=== PATIENT | male | born 1985 | race Caucasian/White ===

== ENCOUNTER 2023-10-07 18:15 | Emergency (ER) | payer SELFPAY ==
[2023-10-07] VITALS (25 sets, daily range): BP systolic 157–185; BP diastolic 92–104; PULSE 104–129; TEMP 36.8–37.9; O2SAT 93–98; BMI 40.2
--- NOTE | 2023-10-07 18:41 | XR_ITS ---
The [address] [address] Patient Name: GISELE HODGES MRN: [id number] date: 1985 Sex: M Assigned Patient Location: ER Current Patient Location: ER Accession/Order Number: [id number] Exam Date: 10/07/2023 18:48 Report Date: 10/07/2023 19:58 At the request of: SRI RM Procedure: XR chest 2V EXAM: XR chest 2V HISTORY: cough, chest pain COMPARISON: CTA chest 02/28/2022. TECHNIQUE: PA and lateral views. FINDINGS: Cardiomediastinal silhouette and pulmonary vascularity are within normal limits. The lungs and the costophrenic angles are clear. Overlying monitoring leads. XR/XR chest 2V IMPRESSION: No acute cardiopulmonary disease. Electronically authenticated by: GERA NORTH Date: 10/07/2023 19:58
--- NOTE | 2023-10-07 18:42 | ECG_ITS ---
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
--- NOTE | 2023-10-07 19:03 | ED_ITS ---
HPI - SOB/Dyspnea General Chief Complaint: Shortness of Breath/Dyspnea Stated Complaint: sob Time Seen by Provider: 10/07/23 18:25 Source: patient Mode of arrival: walk-in Limitations: no limitations History of Present Illness HPI Narrative: Patient with 2 weeks of nasal congestion/sinus symptoms and a cough with all different colors of phlegm . Three nights ago he developed right sided chest pain that woke him from sleeping around 3am - since then he has continued to experience intermittent right sided chest pain, sometimes severe. His significant other finally convinced him to come to the ED for evaluation and treatment. He has not been tested for anything over the last 2 weeks. He does not see his PCP for yearly checkups. He takes no prescribed meds. No prior history of DVT or PE. Related Data Allergies Allergy/AdvReac Type Severity Reaction Status Date / Time Penicillins Allergy Intermediate Verified 10/07/23 18:21 Exam Narrative Exam Narrative: Nurses notes and vital signs reviewed and patient is not hypoxic. afebrile General: Well-appearing and in no apparent distress. Skin: Warm, dry, no pallor noted. No rash. Head: Normocephalic, atraumatic. Neck: Supple, non-tender. Cervical lymphadenopathy. No meningismus. Eye: Pupils are equal, round and EOMI. No scleral icterus. Ears, Nose, Mouth, and Throat: TM are clear, no posterior oropharynx erythema, uvula is mid-line. Mild nasal mucosal hypertrophy Oral mucosa is moist Cardiovascular: Tachycardia. Respiratory: Tachypnea. No accessory muscle use or respiratory distress. Lungs With scattered rhonchi Chest Wall: Diffuse right chest wall tenderness, without crepitus or subcutaneous emphysema Musculoskeletal: normal ROM, no calf or popliteal tenderness, no lower extremity edema/swelling GI: Abdomen is soft, non-distended. Normal bowel sounds. No tenderness to palpation. No rebound, guarding, or rigidity noted. Neurological: A&O x4. No cranial nerve dysfunction observed. No truncal ataxia. Moves all extremities. Sensation intact. Psychiatric: Cooperative and interactive. Normal mood and affect. Constitutional Vital Signs, click to edit/add: Last Vital Signs Temp 100.2 F 10/07/23 18:57 Pulse 119 H 10/07/23 19:00 Resp 24 H 10/07/23 18:18 BP 157/92 H 10/07/23 18:57 Pulse Ox 95 04/07/24 19:00 O2 Del Method Room Air 10/07/23 18:25 Course Vital Signs Vital signs: Vital Signs Temperature 98.2 F 10/07/23 18:18 Pulse Rate 119 H 10/07/23 18:18 Respiratory Rate 24 H 10/07/23 18:18 Blood Pressure 185/104 H 10/07/23 18:18 Pulse Oximetry 98 10/07/23 18:18 Oxygen Delivery Method Room Air 10/07/23 18:18 Temperature 100.2 F 10/07/23 18:57 Pulse Rate 119 H 10/07/23 19:00 Respiratory Rate 24 H 10/07/23 18:18 Blood Pressure 157/92 H 10/07/23 18:57 Pulse Oximetry 95 10/07/23 19:00 Oxygen Delivery Method Room Air 10/07/23 18:25 MDM - SOB/Dyspnea MDM Narrative Medical decision making narrative: Patient was placed on teletypesetter monitor and EKG obtained. Blood drawn and sent for evaluation. Chest x-ray obtained. EKG was sinus tachycardia. No ST elevation or ischemic changes noted. Chest x-ray and D-dimer pending. Patient signed out to Dr. Rodas at shift change Discharge Plan Discharge Chief Complaint: Shortness of Breath/Dyspnea Patient Disposition: Still a Patient Print Language: Cook Islander Referrals: Physician,Non-Staff, MD [Primary Care Provider] - 1 week
[2023-10-07 19:13] LABS: Influenza Virus A Antigen Negative; Influenza Virus B Antigen Negative; Internal Control Within Normal Limits; SARS-CoV-2 Ag NEGATIVE (NEGATIVE)
[2023-10-07] MEDS: ACETAMINOPHEN 500 MG TABLET 1000 MG PO (19:42)
--- NOTE | 2023-10-07 19:42 | CT_ITS ---
[address] [address] Patient Name: GISELE HODGES MRN: [id number] date: 1985 Sex: M Assigned Patient Location: ER Current Patient Location: Accession/Order Number: [id number] Exam Date: 10/07/2023 19:55 Report Date: 10/07/2023 21:00 At the request of: PARTH VIERA Procedure: CT angio chest EXAMINATION:CT angio chest INDICATION:chest pain COMPARISON:02/28/2022 TECHNIQUE:Thin section transaxial slices were acquired through the chest with intravenous contrast per PE protocol. Coronal and sagittal reconstructed images were reviewed. FINDINGS: PULMONARY ARTERIES: There is fair opacification of the pulmonary vasculature. No central pulmonary embolus is identified in the main pulmonary arteries or proximal segmental branches. The distal segmental branches are not optimally opacified for adequate evaluation. LUNGS: There is an irregular soft tissue masslike density in the medial right lower lobe measuring 7.6 x 3.2 x 5.5 cm. This could represent airspace density from pneumonia. A neoplastic process cannot be excluded. The left lung is clear. There is a 4 mm-sized pulmonary nodule in the right middle lobe which is unchanged from the previous exam. PLEURAL CAVITY: No pleural effusion. MEDIASTINUM: Trachea and central airways are patent. HEART: UnRemarkable.There is no evidence of right heart strain. VASCULAR:No aneurysm or dissection of the thoracic aorta. LYMPH NODES:There is lymphadenopathy in the mediastinum and right hilum. The largest lymph node is present in the right hilum measuring 3.1 x 2.0 cm. CHEST WALL/AXILLA: Chest wall and axilla are unremarkable. BONES: Mild endplate degeneration is present in the thoracic spine. VISUALIZED UPPER ABDOMEN: Upper abdominal structures are unremarkable. CT/CT angio chest IMPRESSION: 1. No central pulmonary embolus in the main pulmonary arteries or proximal segmental branches. 2. Irregular soft tissue masslike density in the right lower lobe as discussed above. This is nonspecific and could be secondary to pneumonia in the proper clinical setting. Malignant neoplasm cannot be excluded. Attention to follow-up is recommended with repeat contrast enhanced chest CT in 3 months. 3. Lymphadenopathy in the mediastinum and right hilum which is also nonspecific. This can be followed up in 3 months as well. Electronically authenticated by: RODRIGUE BERNSTEIN Date: 10/07/2023 21:00
[2023-10-07] MEDS: ALBUTEROL SULFATE 2.5 MG/3 ML VIAL NEB IH (20:03)
[2023-10-07] MEDS: LEVOFLOXACIN 500 MG TABLET PO (21:57)
== END 2023-10-07 21:59 | disposition home or self-care (01) ==
PROVIDERS: Emergency Medicine; Emergency Provider Internal Medicine
DX: J18.9 Pneumonia, unspecified organism (principal); Z20.822 Contact with and (suspected) exposure to COVID-19
CPT/HCPCS: 36415; 71046; 71275; 85378; 87804; 87811; 93005; 94640; 99285; Q9967

== ENCOUNTER 2024-03-28 01:34 | Emergency (ER) | payer SELFPAY ==
[2024-03-28 01:36] VITALS: BP 155/103; PULSE 109; TEMP 37.2; O2SAT 97; BMI 34.4
--- NOTE | 2024-03-28 01:47 | ED.EXTPRO1 ---
HPI - Extremity Problem General Chief complaint: Extremity Problem, Nontraumatic Stated complaint: RASH BOTH LEGS Time Seen by Provider: 03/28/24 01:44 Source: patient Mode of arrival: walk-in Limitations: no limitations History of Present Illness HPI Narrative: presents with rash bilat lower ext. States exposed to poison [place]. rash on right leg now has weeping and vesicular lesions. Rash jus starting on left leg. No pain. No fever or dyspnea. No systemic symptoms Related Data Allergies Allergy/AdvReac Type Severity Reaction Status Date / Time Penicillins Allergy Intermediate Anaphylaxis Verified 03/28/24 01:42 Review of Systems ROS Status of ROS 10 or more systems reviewed and unremarkable except as noted in history and below [facility] Surgical History (Updated 03/28/24 @ 01:42 by Akilah Meléndez) History of appendectomy ?Z90.49 - Acquired absence of other specified parts of digestive tract (ICD-10) Social History Little interest or pleasure in doing things: not at all Feeling down, depressed, or hopeless: not at all Exam Constitutional Vital Signs, click to edit/add: Last Vital Signs Temp 98.9 F 03/28/24 01:36 Pulse 109 H 03/28/24 01:36 Resp 20 03/28/24 01:36 BP 155/103 H 03/28/24 01:36 Pulse Ox 97 03/28/24 01:36 O2 Del Method Room Air 03/28/24 01:36 Common normals: no apparent distress, average body habitus, oriented x3, no limitations, healthy appearing, alert and well nourished [facility] Common normals: normocephalic and head/scalp atraumatic Respiratory Common normals: normal respiratory effort, no retractions, no use of accessory muscles and clear to auscultation bilaterally Cardio Common normals: regular rate, regular rhythm, S1 normal heart sound and S2 normal heart sound Extremity Other: rash bilat lower ext. R>>L Neuro Common normals: oriented x3, CN's II-XII intact bilaterally, moves all extremities and no focal motor deficits Sensorium/orientation: awake Psych Appearance: grossly normal Course Vital Signs Vital signs: Vital Signs Temperature 98.9 F 03/28/24 01:36 Pulse Rate 109 H 03/28/24 01:36 Respiratory Rate 03/28/24 01:36 Blood Pressure 155/103 H 03/28/24 01:36 Pulse Oximetry 97 03/28/24 01:36 Oxygen Delivery Method Room Air 03/28/24 01:36 Temperature 98.9 F 03/28/24 01:36 Pulse Rate 109 H 03/28/24 01:36 Respiratory Rate 20 03/28/24 01:36 Blood Pressure 155/103 H 03/28/24 01:36 Pulse Oximetry 97 03/28/24 01:36 Oxygen Delivery Method Room Air 03/28/24 01:36 MDM - Extremity (Nontraumatic) MDM Narrative Medical decision making narrative: patient presents with rash of contact dermatitics bilat lower extremities given dose of solumedrol and discharged home with prednisone Discharge Plan Discharge Chief Complaint: Extremity Problem, Nontraumatic Clinical Impression: Contact dermatitis Patient Disposition: Home, Self-Care Print Language: Burundian Instructions: Contact Dermatitis (ED) Additional Instructions: follow up with your doctor next week for recheck Referrals: Physician,Non-Staff, MD [Primary Care Provider] - 1 week Discharge Date/Time: 03/28/24 02:00
[2024-03-28] MEDS: METHYLPREDNISOLONE SOD SUCC PF 125 MG/2 ML VIAL IM (01:56)
== END 2024-03-28 02:00 | disposition home or self-care (01) ==
PROVIDERS: Emergency Provider Internal Medicine
DX: L25.9 Unspecified contact dermatitis, unspecified cause (principal)
CPT/HCPCS: 96372; 99284; J2919

== ENCOUNTER 2025-04-10 17:40 | Emergency (ER) | payer OTHER, SELFPAY ==
--- OUTSIDE RECORDS SUMMARY | 2025-04-10 17:55 | XMS_ITS | CCD ---
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 [address] [place] [address] VIR Platelet mean volume (Bld) [Entitic vol] 8.0 fL Normal 7-12 [facility] Comment on above: Performed By: #### C BCA #### [facility] ([facility]) [address] [place] [address] VIR Platelets (Bld) [#/Vol] 317 10*3/uL Normal 150-450 [facility] Comment on above: Performed By: #### C BCA #### [facility] ([facility]) [address] [place] [address] VIR RBC COUNT 4.57 X10E12/L Normal 4.1-5.7 [facility] Comment on above: Performed By: #### C BCA #### [facility] ([facility]) [address] [place] [address] VIR WBC (Bld) [#/Vol] 10.5 10*3/uL Normal 4-11 [facility] Comment on above: Performed By: #### C BCA #### [facility] ([facility]) [address] [place] [address] VIR COMPREHENSIVE METABOLIC PANE Victor Manuel 12-31-2024 Albumin [Mass/Vol] 4.6 g/dL Normal 3.2-5.3 [facility] Comment on above: Performed By: #### C MP #### [facility] ([facility]) [address] [place] [address] VIR ALP [Catalytic activity/Vol] 97 U/L Normal 39-130 [facility] Comment on above: Performed By: #### C MP #### [facility] ([facility]) [address] [place] [address] VIR ALT [Catalytic activity/Vol] 24 U/L Normal <=40 [facility] Comment on above: Performed By: #### C MP #### [facility] ([facility]) [address] [place] [address] VIR Anion gap [Moles/Vol] 10 mmol/L Normal 5-15 [facility] Comment on above: Performed By: #### C MP #### [facility] ([facility]) [address] [place] [address] VIR AST [Catalytic activity/Vol] 21 U/L Normal <=41 [facility] Comment on above: Performed By: #### C MP #### [facility] ([facility]) [address] [place] [address] VIR Bilirubin [Mass/Vol] 0.5 mg/dL Normal 0.3-1.2 [facility] Comment on above: Performed By: #### C MP #### [facility] ([facility]) [address] [place] [address] VIR Calcium [Mass/Vol] 9.3 mg/dL Normal 8.5-10.5 [facility] Comment on above: Performed By: #### C MP #### [facility] ([facility]) [address] [place] [address] VIR Chloride [Moles/Vol] 96 mmol/L Low 98-109 [facility] Comment on above: Performed By: #### C MP #### [facility] ([facility]) [address] [place] [address] VIR CO2 [Moles/Vol] 28 mmol/L Normal 22-32 [facility] Comment on above: Performed By: #### C MP #### [facility] ([facility]) [address] [place] [address] VIR Creatinine [Mass/Vol] 0.82 mg/dL Normal 0.60-1.30 [facility] Comment on above: Result Comment: METH OD TRACEABLE TO IDMS STANDARD Performed By: #### C MP #### [facility] ([facility]) [address] [place] [address] VIR EGFR (CKD-EPI) NON-RACE DEPENDENT >^90 Normal >=60 [facility] Comment on above: Result Comment: Repo rted eGFR is based on the CKD-EPI 2020 equation that does not use a race coefficient. Performed By: #### C MP #### [facility] ([facility]) [address] [place] [address] VIR Glucose [Mass/Vol] 149 mg/dL High 65-99 [facility] Comment on above: Performed By: #### C MP #### [facility] ([facility]) [address] [facility] [address] [place] [address] VIR Potassium [Moles/Vol] 3.7 mmol/L Normal 3.5-5.0 [facility] Comment on above: Performed By: #### C MP #### [facility] ([facility]) [address] [place] [address] VIR Protein [Mass/Vol] 7.5 g/dL Normal 6.0-8.0 [facility] Comment on above: Performed By: #### C MP #### [facility] ([facility]) [address] [place] [address] VIR Sodium [Moles/Vol] 134 mmol/L Normal 134-146 [facility] Comment on above: Performed By: #### C MP #### [facility] ([facility]) [address] [place] [address] VIR Urea nitrogen [Mass/Vol] 17 mg/dL Normal 5-23 [facility] Comment on above: Performed By: #### C MP #### [facility] ([facility]) [address] [place] [address] VIR HIV 1 AND 2 AB/AG SCREEN (P2 4 AG)on 12-31-2024 HIV 1 AND 2 AB/AG SCREEN Non-Reactive Normal Non-Reactive [facility] Comment on above: Order Comment: This information has been disclosed to you from confidential records protected from disclosure by state law. You shall make no further disclosure of this information without the specific, written and informed release of the individual to whom it pertains, or as otherwise permitted by state law. A general authorization for the release of medical or other information is not sufficient for the purpose of the release of HIV test results or diagnoses. Performed By: #### H IV4 #### [facility] ([facility]) [address] [place] [address] VIR LIPID PROFILEon 12-31-2024 Cholesterol [Mass/Vol] 147 mg/dL Low 150-200 [facility] Comment on above: Performed By: #### L IPR #### [facility] ([facility]) [address] [place] [address] VIR Cholesterol in HDL [Mass/Vol] 31 mg/dL Low >39 [facility] Comment on above: Result Comment: HDL <40 mg/dL - High Risk HDL > or = 40mg/dL- Desirable HDL >60 mg/dL - Negative Risk Performed By: #### L IPR #### [facility] ([facility]) [address] [place] [address] VIR Cholesterol in LDL [Mass/Vol] 98 mg/dL Normal <130 [facility] Comment on above: Result Comment: LDL <100 mg/dL - Desirable LDL >160 mg/dL - High Risk Performed By: #### L IPR #### [facility] ([facility]) [address] [place] [address] VIR CHOLESTEROL:HDL 4.7 Normal 1.0-5.0 [facility] Comment on above: Performed By: #### L IPR #### [facility] ([facility]) [address] [place] [address] VIR Triglyceride [Mass/Vol] 89 mg/dL Normal 27-150 [facility] Comment on above: Performed By: #### L IPR #### [facility] ([facility]) [address] [place] [address] VIR VERY LOW LIPOPROTEIN 18 mg/dL Normal 0-30 [facility] Comment on above: Performed By: #### L IPR #### [facility] ([facility]) [address] [place] [address] VIR CTA CHEST WO W CONon 022 CTA CHEST WO W CON EXAMINATION: CTA CHEST WO W CON, 02/28/2022 9:07 PM EDT HISTORY: SHORTNESS OF BREATH COMPARISON: Chest x-ray 02/28/2022. TECHNIQUE: CT angiography of the chest was performed with IV contrast. MIP (maximum intensity projection) images or 3D post processing was performed. CT dose reduction technique was used, including Automated Exposure Control. FINDINGS: VASCULATURE/PULMONAR Y ARTERIES: There is satisfactory opacification of the pulmonary arterial system. There is no evidence of pulmonary embolism. The main pulmonary artery is normal in diameter. The aorta and great vessels appear normal. HEART/PERICARDIUM: Normal. MEDIASTINAL/HILAR LYMPH NODES: There is no adenopathy. There is mild haziness of the anterior mediastinal fat which may be due to residual thymic tissue. ESOPHAGUS: Normal as visualized. PLEURAL CAVITY: No pleural effusion or pneumothorax. LUNGS/AIRWAYS: Mild bilateral bronchial wall thickening consistent with bronchitis. There is a 3 mm nodular density in the right middle lobe on image 43. There is a 2 mm nodular density in the right upper lobe on image 32. There is a 4 mm nodule in the posterior segment of the right lower lobe on image 29. There is a 4 mm left upper lobe nodule on image 29. There is a 3 mm nodule along the left major fissure on image 34. Lungs are otherwise clear. CHEST WALL/AXILLA/LOWER NECK: Normal. VISUALIZED UPPER ABDOMEN: Normal. BONES: There are mild multilevel degenerative changes of the thoracic spine. No acute osseous abnormality. IMPRESSION: 1. No evidence of pulmonary embolism. 2. Bronchial wall thickening suggestive of bronchitis. 3. Multiple small pulmonary nodules measuring up to 4 mm. Follow-up chest CT may be considered in 12 months if clinically indicated. Fleischner Society guidelines for follow-up and management of multiple solid pulmonary nodules incidentally discovered in patients 35 years old or older: Nodule size <6 mm Low-risk patient: No routine follow-up. High-risk patient: Optional CT at 12 months. Nodule size = 6-8 mm Low-risk patient: CT at 3-6 months, then consider CT at 18-24 months. High-risk patient: CT at 3-6 months, then CT at 18-24 months. Nodule size > 8 mm Low-risk patient: CT at 3-6 months, then consider CT at 18-24 months. High-risk patient: CT at 3-6 months ,then CT at 18-24 months. Use most suspicious nodule as guide to management. Follow-up intervals may vary according to size and risk. Low risk patients include individuals with minimal or absent history of smoking and other known risk factors. High risk patients include individuals with a history of smoking or other known risk factors. Dimensions are an average of the long and short axes, rounded to the nearest millimeter. Radiology 2017. Feb 23:282320. DOI: 10.1148/[id number]. Electronically authenticated by: GLORIA MURO Date: 2022-02-28 22:50 Normal [facility] CBC AUTO DIFFon 02-28-2022 BASO # 0.1 103/ul Normal 0.0-0.1 [facility] Comment on above: Performed By: #### C BC #### [facility] [address] [place] [address] Dr. Karsten Nice Basophils/100 WBC (Bld) 0.5 % Normal 0.2-2.0 [facility] Comment on above: Performed By: #### C BC #### [facility] [address] [place] [address] Dr. Karsten Nice EO # 0.5 103/ul Normal 0.0-0.7 [facility] Comment on above: Performed By: #### C BC #### [facility] [address] [place] [address] Dr. Karsten Nice Eosinophils/100 WBC (Bld) 3.0 % Normal 0.9-7.0 [facility] Comment on above: Performed By: #### C BC #### [facility] [address] [place] [address] Dr. Karsten Nice Erythrocyte distribution width (RBC) [Ratio] 12.8 % Normal 11.0-15.0 [facility] Comment on above: Performed By: #### C BC #### [facility] [address] [address] [address] Karsten Nice Hematocrit (Bld) [Volume fraction] 44.3 % Normal 42.0-54.0 [facility] Comment on above: Performed By: #### C BC #### [facility] [address] [address] [address] Karsten Nice Hemoglobin (Bld) [Mass/Vol] 15.1 g/dL Normal 14.0-18.0 [facility] Comment on above: Performed By: #### C BC #### [facility] [address] [place] [address] Dr. Karsten Nice IG # 0.07 10e3/ul Critically high 0.00-0.03 [facility] Comment on above: Performed By: #### C BC #### [facility] [address] [place] [address] Dr. Karsten Nice IG % 0.5 % Normal 0.0-0.5 [facility] Comment on above: Performed By: #### C BC #### [facility] [address] [place] [address] Dr. Karsten Nice LYMPH # 4.4 103/ul Critically high 1.2-3.8 [facility] Comment on above: Performed By: #### C BC #### [facility] [address] [place] [address] Dr. Karsten Nice Lymphocytes/100 WBC (Bld) 29.7 % Normal 20.5-60.0 [facility] Comment on above: Performed By: #### C BC #### [facility] [address] [place] [address] Dr. Karsten Nice MANUAL DIFF REQ NO Normal [facility] Comment on above: Performed By: #### C BC #### [facility] [address] [place] [address] Dr. Karsten Nice MCH (RBC) [Entitic mass] 29.7 pg Normal 25.9-34.0 [facility] Comment on above: Performed By: #### C BC #### [facility] [address] [address] [address] Karsten Nice MCHC (RBC) [Mass/Vol] 34.1 g/dL Normal 29.9-35.2 [facility] Comment on above: Performed By: #### C BC #### [facility] [address] [address] [address] Karsten Nice MCV (RBC) [Entitic vol] 87.2 fL Normal 80.0-94.0 [facility] Comment on above: Performed By: #### C BC #### [facility] [address] [address] [address] Karsten Nice MONO # 0.9 103/ul Critically high 0.3-0.8 [facility] Comment on above: Performed By: #### C BC #### [facility] [address] [place] [address] Dr. Karsten Nice Monocytes/100 WBC (Bld) 6.0 % Normal 1.7-12.0 [facility] Comment on above: Performed By: #### C BC #### [facility] [address] [address] [address] Karsten Nice NEUT # 8.9 103/ul Critically high 1.4-6.5 [facility] Comment on above: Performed By: #### C BC #### [facility] [address] [place] [address] Dr. Karsten Nice Neutrophils/100 WBC (Bld) 60.3 % Normal 43.0-75.0 [facility] Comment on above: Performed By: #### C BC #### [facility] [address] [address] [address] Karsten Nice Platelet mean volume (Bld) [Entitic vol] 9.2 fL Critically low 9.5-13.5 [facility] Comment on above: Performed By: #### C BC #### [facility] [address] [place] [address] Dr. Karsten Nice PLT 372 103/ul Normal 150-450 [facility] Comment on above: Performed By: #### C BC #### [facility] [address] [address] [address] Karsten Nice RBC 5.08 106/ul Normal 4.70-6.10 [facility] Comment on above: Performed By: #### C BC #### [facility] [address] [address] [address] Karsten Nice WBC 14.8 103/ul Critically high 4.0-11.0 [facility] Comment on above: Performed By: #### C BC #### [facility] [address] [address] [address] Karsten Nice Covid-19 PCR (CVDTBH)on 02-01 SARS-CoV-2 (COVID-19) RNA JOEL+probe Ql (Unsp spec) Not detected Normal NOT DETECTED [facility] Comment on above: Result Comment: When diagnostic testing is negative, the possibility of a false negative should be considered in the context of a patient's recent exposures and the presence of clinical signs and symptoms consistent with SARS-CoV-2. This test is not yet approved or cleared by the [place] FDA. When there are no FDA-approved or cleared tests available, and other criteria are met, FDA can make tests available under an emergency access mechanism called an Emergency Use Authorization (EUA). The EUA for this test is supported by the Produce Manager of Health and Human Service's declaration that circumstances exist to justify the emergency use of in vitro diagnostics for the detection and/or diagnosis of the virus that causes COVID-19. This EUA will remain in effect for the duration of the COVID-19 declaration justifying emergency of IVDs, unless it is terminated or revoked by the FDA (after which the test may no longer be used). Performed By: #### C VDTBH #### [facility] [address] [place] [address] Dr. Karsten Nice D-DIMERon 02-28-2022 D-DIMER 0.63 mg/L FEU Critically high <=0.59 [facility] Comment on above: Performed By: #### D DIM #### [facility] [address] [place] [address] Dr. Karsten Nice D-DIMER COMMENTS SEE BELOW Normal [facility] Comment on above: Result Comment: Incr eases in D-Dimer concentration observed with thromboembolic events can be variable due to localization, size, and age of the thrombus. Therefore, a thromboembolic event cannot be diagnosed with certainty on the basis of the reference range. D-Dimers may also be elevated for a variety of disorders including: advanced age, , coronary disease, cancer, liver disease, infection, inflammation, hematoma, DIC, trauma, post-surgery, diabetes, thrombolytic or anticoagulant therapy, stress, and generalized hospitalization. Performed By: #### D DIM #### [facility] [address] [place] [address] Dr. Karsten Nice LIPASEon 02-28-2022 Lipase [Catalytic activity/Vol] 83.0 U/L Normal 73.0-393.0 [facility] Comment on above: Performed By: #### L IPA, HSTROPN, CMP #### [facility] [address] [place] [address] Dr. Karsten Nice PROF 14(COMP METB)on 022 Albumin [Mass/Vol] 4.0 g/dL Normal 3.4-5.0 [facility] Comment on above: Performed By: #### L IPA, HSTROPN, CMP #### [facility] [address] [place] [address] Dr. Karsten Nice Albumin/Globulin [Mass ratio] 1.1 {ratio} Normal [facility] Comment on above: Performed By: #### L IPA, HSTROPN, CMP #### [facility] [address] [place] [address] Dr. Karsten Nice ALP [Catalytic activity/Vol] 112 U/L Normal 46-116 [facility] Comment on above: Performed By: #### L IPA, HSTROPN, CMP #### [facility] [address] [place] [address] Dr. Karsten Nice ALT [Catalytic activity/Vol] 45 U/L Normal 16-63 [facility] Comment on above: Performed By: #### L IPA, HSTROPN, CMP #### [facility] [address] [place] [address] Dr. Karsten Nice Anion gap [Moles/Vol] 14.4 mmol/L Normal [facility] Comment on above: Performed By: #### L IPA, HSTROPN, CMP #### [facility] [address] [address] [address] Karsten Nice AST [Catalytic activity/Vol] 18 U/L Normal 15-37 [facility] Comment on above: Performed By: #### L IPA, HSTROPN, CMP #### [facility] [address] [address] [address] Karsten Nice Bilirubin [Mass/Vol] 0.2 mg/dL Normal 0.2-1.0 [facility] Comment on above: Performed By: #### L IPA, HSTROPN, CMP #### [facility] [address] [place] [address] Dr. Karsten Nice Calcium [Mass/Vol] 8.7 mg/dL Normal 8.5-10.1 [facility] Comment on above: Performed By: #### L IPA, HSTROPN, CMP #### [facility] [address] [address] [address] Karsten Nice Chloride [Moles/Vol] 101 mmol/L Normal 98-107 [facility] Comment on above: Performed By: #### L IPA, HSTROPN, CMP #### [facility] [address] [place] [address] Dr. Karsten Nice CO2 [Moles/Vol] 26.1 mmol/L Normal 21.0-32.0 [facility] Comment on above: Performed By: #### L IPA, HSTROPN, CMP #### [facility] [address] [place] [address] Dr. Karsten Nice Creatinine [Mass/Vol] 0.94 mg/dL Normal 0.70-1.30 [facility] Comment on above: Performed By: #### L IPA, HSTROPN, CMP #### [facility] [address] [place] [address] Dr. Karsten Nice EGFR-AF NAURUAN >60 Normal >=60 [facility] Comment on above: Performed By: #### L IPA, HSTROPN, CMP #### [facility] [address] [address] [address] Karsten Nice EGFR-NON AF NAURUAN >60 Normal >=60 [facility] Comment on above: Performed By: #### L IPA, HSTROPN, CMP #### [facility] [address] [address] [address] Karsten Nice Globulin (S) [Mass/Vol] 3.6 g/dL Normal [facility] Comment on above: Performed By: #### L IPA, HSTROPN, CMP #### [facility] [address] [address] [address] Karsten Nice Glucose [Mass/Vol] 147 mg/dL Critically high 74-106 [facility] Comment on above: Performed By: #### L IPA, HSTROPN, CMP #### [facility] [address] [address] [address] Karsten Nice Potassium [Moles/Vol] 3.5 mmol/L Normal 3.5-5.1 [facility] Comment on above: Performed By: #### L IPA, HSTROPN, CMP #### [facility] [address] [place] [address] Dr. Karsten Nice Protein [Mass/Vol] 7.6 g/dL Normal 6.4-8.2 [facility] Comment on above: Performed By: #### L IPA, HSTROPN, CMP #### [facility] [address] [address] [address] Karsten Nice Sodium [Moles/Vol] 138 mmol/L Normal 136-145 [facility] Comment on above: Performed By: #### L IPA, HSTROPN, CMP #### [facility] [address] [place] [address] Dr. Karsten Nice Urea nitrogen [Mass/Vol] 19.0 mg/dL Critically high 7.0-18.0 [facility] Comment on above: Performed By: #### L IPA, HSTROPN, CMP #### [facility] [address] [address] [address] Karsten Nice Urea nitrogen/Creatinine [Mass ratio] 20.2 mg/mg Normal [facility] Comment on above: Performed By: #### L IPA, HSTROPN, CMP #### [facility] [address] [address] [address] Karsten Nice TROPONIN, HIGH SENSITIVITYon 02-28-2022 HSTROP 5.3 pg/mL Normal 4.0-76.1 [facility] Comment on above: Result Comment: CUT- OFF POINTS HAVE BEEN ESTABLISHED BASED ON THE FOURTH UNIVERSAL DEFINITIONS OF MYOCARDIAL INFARCTION. THE UPPER REFERENCE LIMIT (URL) OF TROPONIN, DEFINED THE 99TH PERCENTILE OF cTnI DISTRIBUTION IN A REFERENCE POPULATION, HAS BEEN CONFIRMED THE DECISION THRESHOLD FOR MS DIAGNOSIS. Performed By: #### L IPA, HSTROPN, CMP #### [facility] [address] [place] [address] Dr. Karsten Nice Basic Metabolic Panelon 10-30 Anion gap [Moles/Vol] 11 mmol/L 9 - 17 mmol/L [place] Bun/Cre Ratio NOT REPORTED [place] Calcium [Mass/Vol] 8.8 mg/dL 8.6 - 10. 4 mg/dL [place] Chloride [Moles/Vol] 102 mmol/L 98 - 10 7 mmol/L [place] CO2 [Moles/Vol] 25 mmol/L 20 - 31 mmol/L [place] Creatinine [Mass/Vol] 0.64 mg/dL Low 0.7 - 1.2 mg/dL [place] GFR >60 >60 mL/min [place] GFR Non- >60 >60 mL/min [place] GFR/1.73 sq M predicted among non-blacks MDRD (S/P/Bld) [Vol rate/Area] [place] Comment on above: Average GFR for 30-3 9 years old: 107 mL/min/1.73sq m Chronic Kidney Disease: <60 mL/min/1.73sq m Kidney failure: <15 mL/min/1.73sq m eGFR calculated using average adult body mass. Additional eGFR calculator available at: http://www.BookFresh/multiple_crcl_2012.htm GFR/1.73 sq M predicted among non-blacks MDRD (S/P/Bld) [Vol rate/Area] NOT REPORTED [place] Glucose [Mass/Vol] 130 mg/dL High 70 - 99 mg/dL [place], [place] Interpretation and review of laboratory results Abnormal [place] Potassium [Moles/Vol] 3.3 mmol/L Low 3.7 - 5.3 mmol/L [place] Sodium [Moles/Vol] 138 mmol/L 135 - 144 mmol/L [place] Urea nitrogen [Mass/Vol] 7 mg/dL 6 - 20 mg/dL [place] Basic Metabolic Profon 11-12 (cont.) Normal [facility] Comment on above: Result Comment: Aver age GFR for 30-39 years old: 107 mL/min/1.73sq m Chronic Kidney Disease: <60 mL/min/1.73sq m Kidney failure: <15 mL/min/1.73sq m eGFR calculated using average adult body mass. Additional eGFR calculator available at: http://www.BookFresh/multiple_crcl_2012.htm Performed By: #### E RTPF, UA, UMICAO, THIERNO #### [facility] [employer] [address] [place] [phone] Electronic Induction Hardener: Robert Motta MD Anion gap [Moles/Vol] 11 mmol/L Normal 9-17 [facility] Comment on above: Performed By: #### E RTPF, UA, UMICAO, THIERNO #### [facility] [employer] [address] [place] [phone] Electronic Induction Hardener: Robert Motta MD Calcium [Mass/Vol] 8.8 mg/dL Normal 8.6-10.4 [facility] Comment on above: Performed By: #### E RTPF, UA, UMICAO, THIERNO #### [facility] [employer] [address] [place] [phone] Electronic Induction Hardener: Robert Motta MD Chloride [Moles/Vol] 102 mmol/L Normal 98-107 [facility] Comment on above: Performed By: #### E RTPF, UA, UMICAO, THIERNO #### [address] [address] Electronic Induction Hardener: Robert Motta MD CO2 [Moles/Vol] 25 mmol/L Normal 20-31 [facility] Comment on above: Performed By: #### E RTPF, UA, UMICAO, THIERNO #### [address] [address] Electronic Induction Hardener: Robert Motta MD Creatinine [Mass/Vol] 0.64 mg/dL Low 0.70-1.20 [facility] Comment on above: Performed By: #### E RTPF, UA, UMICAO, THIERNO #### [address] [address] Electronic Induction Hardener: Robert Motta MD GFR, Amer >60 Normal >60 [facility] Comment on above: Performed By: #### E RTPF, UA, UMICAO, THIERNO #### [address] [address] Electronic Induction Hardener: Robert Motta MD GFR,non Amer >60 Normal >60 [facility] Comment on above: Performed By: #### E RTPF, UA, UMICAO, THIERNO #### [address] [address] Electronic Induction Hardener: Robert Motta MD Glucose [Mass/Vol] 130 mg/dL High 70-99 [facility] Comment on above: Performed By: #### E RTPF, UA, UMICAO, THIERNO #### [address] [address] Electronic Induction Hardener: Robert Motta MD Potassium [Moles/Vol] 3.3 mmol/L Low 3.7-5.3 [facility] Comment on above: Performed By: #### E RTPF, UA, UMICAO, THIERNO #### [facility] [address] [place] [address] Electronic Induction Hardener: Robert Motta MD Sodium [Moles/Vol] 138 mmol/L Normal 135-144 [facility] Comment on above: Performed By: #### E RTPF, UA, UMICAO, THIERNO #### [facility] [address] [place] [phone] Electronic Induction Hardener: Robert Motta MD Urea nitrogen [Mass/Vol] 7 mg/dL Normal 6-20 [facility] Comment on above: Performed By: #### E RTPF, UA, UMICAO, THIERNO #### [facility] [address] [place] [address] Electronic Induction Hardener: Robert Motta MD BUN/CRE Ratio NOT REPORTED Normal -20 [facility] Comment on above: Performed By: #### E RTPF, UA, UMICAO, THIERNO #### [facility] [address] [place] [phone] Electronic Induction Hardener: Robert Motta MD Staging: NOT REPORTED Normal [facility] Comment on above: Performed By: #### E RTPF, UA, UMICAO, THIERNO #### [facility] [address] [place] [phone] Electronic Induction Hardener: Robert Motta MD CBC Auto Differentialon 05- Basophils (Bld) [#/Vol] 0.07 10*3/uL [place] Basophils/100 WBC (Bld) 1 % 0 - 2 % [place], [place] Differential Type NOT REPORTED [place] Eosinophils (Bld) [#/Vol] 0.49 10*3/uL [place] Eosinophils/100 WBC (Bld) 3 % 1 - 4 % [place] Erythrocyte distribution width (RBC) [Ratio] 13.0 % 11.8 - 14.4 % [place] Hematocrit (Bld) [Volume fraction] 39.5 % Low 40.7 - 50.3 % [place] Hemoglobin (Bld) [Mass/Vol] 12.9 g/dL Low 13 - 17 g/dL [place] Immature granulocytes (Bld) [#/Vol] 0.06 10*3/uL [place] Immature granulocytes (Bld) [#/Vol] 0 % 0 [place] Interpretation and review of laboratory results Abnormal [place] Lymphocytes (Bld) [#/Vol] 2.47 10*3/uL [place] Lymphocytes/100 WBC (Bld) 17 % Low 24 - 43 % [place] MCH (RBC) [Entitic mass] 30.4 pg 25.2 - 33.5 pg [place] MCHC (RBC) [Mass/Vol] 32.7 g/dL 28.4 - 34.8 g/dL [place] MCV (RBC) [Entitic vol] 93.2 fL 82.6 - 102.9 fL [place] Monocytes (Bld) [#/Vol] 1.25 10*3/uL [place] Monocytes/100 WBC (Bld) 9 % 3 - 12 % [place] Platelet mean volume (Bld) [Entitic vol] 9.7 fL 8.1 - 13.5 fL [place], [place] Platelets (Bld) [#/Vol] 279 10*3/uL [place] Platelets (Bld) [#/Vol] NOT REPORTED [place] RBC (Bld) [#/Vol] 4.24 10*6/uL 4.21 - 5.7 7 m/uL [place] RBC morphology finding Nom (Bld) NOT REPORTED [place] Segmented neutrophils/100 WBC (Bld) 70 % High 36 - 65 % [place] Segs Absolute 9.87 [place] WBC (Bld) [#/Vol] 14.2 10*3/uL [place] WBC (Bld) [#/Vol] 0.0 10*3/uL 0.0 per 10 0 WBC [place] WBC Morphology NOT REPORTED [place] CBC with Diffon 11-13-2019 Abs. Basophil 0.07 k/uL Normal 0.00-0.20 [facility] Comment on above: Performed By: #### E RTPF UA, UMJDO, THIERNO #### [address] [address] Electronic Induction Hardener: Robert Motta MD Abs.Imm.Granulocyte 0.06 k/uL Normal 0.00-0.30 [facility] Comment on above: Performed By: #### E RTPF, UA, UMICAO, THIERNO #### [facility] [employer] [address] [place] [phone] Electronic Induction Hardener: Robert Motta MD Abs.Neutrophil (Seg) 9.87 k/uL High 1.50-8.10 [facility] Comment on above: Performed By: #### E RTPF, UA, UMICAO, THIERNO #### [facility] [employer] [address] [place] [phone] Electronic Induction Hardener: Robert Motta MD Basophils/100 WBC (Bld) 1 % Normal 0-2 [facility] Comment on above: Performed By: #### E RTPF, UA, UMICAO, THIERNO #### [facility] [employer] [address] [place] [address] Electronic Induction Hardener: Robert Motta MD Eosinophils (Bld) [#/Vol] 0.49 10*3/uL High 0.00-0.44 [facility] Comment on above: Performed By: #### E RTPF, UA, UMICAO, THIERNO #### [address] [address] Electronic Induction Hardener: Robert Motta MD Eosinophils/100 WBC (Bld) 3 % Normal 1-4 [facility] Comment on above: Performed By: #### E RTPF, UA, UMICAO, THIERNO #### [address] [address] Electronic Induction Hardener: Robert Motta MD Erythrocyte distribution width (RBC) [Ratio] 13.0 % Normal 11.8-14.4 [facility] Comment on above: Performed By: #### E RTPF, UA, UMICAO, THIERNO #### [address] [address] Electronic Induction Hardener: Robert Motta MD Hematocrit (Bld) [Volume fraction] 39.5 % Low 40.7-50.3 [facility] Comment on above: Performed By: #### E RTPF, UA, UMICAO, THIERNO #### [address] [address] Electronic Induction Hardener: Robert Motta MD Hemoglobin (Bld) [Mass/Vol] 12.9 g/dL Low 13.0-17.0 [facility] Comment on above: Performed By: #### E RTPF, UA, UMICAO, THIERNO #### [facility] [employer] [address] [place] [phone] Electronic Induction Hardener: Robert Motta MD Immature granulocytes (Bld) [#/Vol] 0 % Normal 0 [facility] Comment on above: Performed By: #### E RTPF, UA, UMICAO, THIERNO #### [facility] [employer] [address] [place] [phone] Electronic Induction Hardener: Robert Motta MD Lymphocytes (Bld) [#/Vol] 2.47 10*3/uL Normal 1.10-3.70 [facility] Comment on above: Performed By: #### E RTPF, UA, UMICAO, THIERNO #### [address] [address] Electronic Induction Hardener: Robert Motta MD Lymphocytes/100 WBC (Bld) 17 % Low 24-43 [facility] Comment on above: Performed By: #### E RTPF, UA, UMICAO, THIERNO #### [address] [address] Electronic Induction Hardener: Robert Motta MD MCH (RBC) [Entitic mass] 30.4 pg Normal 25.2-33.5 [facility] Comment on above: Performed By: #### E RTPF, UA, UMICAO, THIERNO #### [address] [address] Electronic Induction Hardener: Robert Motta MD MCHC (RBC) [Mass/Vol] 32.7 g/dL Normal 28.4-34.8 [facility] Comment on above: Performed By: #### E RTPF, UA, UMICAO, THIERNO #### [address] [address] Electronic Induction Hardener: Robert Motta MD MCV (RBC) [Entitic vol] 93.2 fL Normal 82.6-102.9 [facility] Comment on above: Performed By: #### E RTPF, UA, UMICAO, THIERNO #### [address] [address] Electronic Induction Hardener: Robert Motta MD Monocytes (Bld) [#/Vol] 1.25 10*3/uL High 0.10-1.20 [facility] Comment on above: Performed By: #### E RTPF, UA, UMICAO, THIERNO #### [address] [address] Electronic Induction Hardener: Robert Motta MD Monocytes/100 WBC (Bld) 9 % Normal 3-12 [facility] Comment on above: Performed By: #### E RTPF, UA, UMICAO, THIERNO #### [address] [address] Electronic Induction Hardener: Robert Motta MD Neutrophil (Seg) 70 % High 36-65 [facility] Comment on above: Performed By: #### E RTPF, UA, UMICAO, THIERNO #### [address] [address] Electronic Induction Hardener: Robert Motta MD NRBC Automated 0.0 per 100 WBC Normal 0.0 [facility] Comment on above: Performed By: #### E RTPF, UA, UMICAO, THIERNO #### [address] [address] Electronic Induction Hardener: Robert Motta MD Platelet mean volume (Bld) [Entitic vol] 9.7 fL Normal 8.1-13.5 [facility] Comment on above: Performed By: #### E RTPF, UA, UMICAO, THIERNO #### [address] [address] Electronic Induction Hardener: Robert Motta MD Platelets (Bld) [#/Vol] 279 10*3/uL Normal 138-453 [facility] Comment on above: Performed By: #### E RTPF, UA, UMICAO, THIERNO #### [address] [address] Electronic Induction Hardener: Robert Motta MD RBC (Bld) [#/Vol] 4.24 10*6/uL Normal 4.21-5.77 [facility] Comment on above: Performed By: #### E RTPF, UA, UMICAO, THIERNO #### [facility] [address] [place] [phone] Electronic Induction Hardener: Robert Motta MD WBC (Bld) [#/Vol] 14.2 10*3/uL High 3.5-11.3 [facility] Comment on above: Performed By: #### E RTPF, UA, UMICAO, THIERNO #### [address] [address] Electronic Induction Hardener: Robert Motta MD Auto Diff Performed NOT REPORTED Normal [facility] Comment on above: Performed By: #### E RTPF, UA, UMICAO, THIERNO #### [address] [address] Electronic Induction Hardener: Robert Motta MD Platelets (Bld) [#/Vol] NOT REPORTED Normal [facility] Comment on above: Performed By: #### E RTPF, UA, UMICAO, THIERNO #### [address] [address] Electronic Induction Hardener: Robert oMtta MD RBC morphology finding Nom (Bld) NOT REPORTED Normal [facility] Comment on above: Performed By: #### E RTPF, UA, UMICAO, THIERNO #### [address] [address] Electronic Induction Hardener: Robert Motta MD WBC Morphology NOT REPORTED Normal [facility] Comment on above: Performed By: #### E RTPF, UA, UMICAO, THIERNO #### [address] [address] Electronic Induction Hardener: Robert Motta MD Arterial Blood Gas, POCon Rafat Test NOT APPLICABLE [facility] [place], [place] aPTT Coag (Bld) [Time] NOT REPORTED [facility] [place], [place] FIO2 50.0 [place] Mode PRVC [place] Negative Base Excess, Art NOT REPORTED [place] O2 Device/Flow/% Adult Ventilator Me [place], [place] Oxygen saturation in Blood 96 % 94 - 98 % [place] POC HCO3 30.0 mmol/L High 21 - 28 mmol/L [place] POC pCO2 51.9 High [place] POC pCO2 Temp NOT REPORTED mm Hg [place] POC pH 7.370 [place] POC pH Temp NOT REPORTED [place], [place] POC PO2 87.0 [place] POC pO2 Temp NOT REPORTED mm Hg [place], [place] Positive Base Excess, Art 4 High [place] Sample Site Arterial Line [place], [place] TCO2 (calc), Art 32 mmol/L High 22 - 29 mmol/L [place] Basic Metabolic Panelon 05- Anion gap [Moles/Vol] 12 mmol/L 9 - 17 mmol/L [place] Bun/Cre Ratio NOT REPORTED [place] Calcium [Mass/Vol] 8.3 mg/dL Low 8.6 - 10. 4 mg/dL [place] Chloride [Moles/Vol] 100 mmol/L 98 - 10 7 mmol/L [place] CO2 [Moles/Vol] 25 mmol/L 20 - 31 mmol/L [place] Creatinine [Mass/Vol] 0.65 mg/dL Low 0.7 - 1.2 mg/dL [place] GFR >60 >60 mL/min [place] GFR Non- >60 >60 mL/min [place] GFR/1.73 sq M predicted among non-blacks MDRD (S/P/Bld) [Vol rate/Area] [place] Comment on above: Average GFR for 30-3 9 years old: 107 mL/min/1.73sq m Chronic Kidney Disease: <60 mL/min/1.73sq m Kidney failure: <15 mL/min/1.73sq m eGFR calculated using average adult body mass. Additional eGFR calculator available at: http://www.BookFresh/multiple_crcl_2012.htm GFR/1.73 sq M predicted among non-blacks MDRD (S/P/Bld) [Vol rate/Area] NOT REPORTED [place] Glucose [Mass/Vol] 148 mg/dL High 70 - 99 mg/dL [place], [place] Potassium [Moles/Vol] 3.6 mmol/L Low 3.7 - 5.3 mmol/L [place] Sodium [Moles/Vol] 137 mmol/L 135 - 144 mmol/L [place] Urea nitrogen [Mass/Vol] 12 mg/dL 6 - 20 mg/dL [place] Basic Metabolic Profon 11-11 (cont.) Normal [facility] Comment on above: Result Comment: Aver age GFR for 30-39 years old: 107 mL/min/1.73sq m Chronic Kidney Disease: <60 mL/min/1.73sq m Kidney failure: <15 mL/min/1.73sq m eGFR calculated using average adult body mass. Additional eGFR calculator available at: http://www.BookFresh/multiple_crcl_2012.htm Performed By: #### E RTPF, UA, UMICAO, THIERNO #### [facility] [address] [place] [phone] Electronic Induction Hardener: Robert Motta MD Anion gap [Moles/Vol] 12 mmol/L Normal 9-17 [facility] Comment on above: Performed By: #### E RTPF, UA, UMICAO, THIERNO #### [facility] [employer] [address] [place] [phone] Electronic Induction Hardener: Robert Motta MD Calcium [Mass/Vol] 8.3 mg/dL Low 8.6-10.4 [facility] Comment on above: Performed By: #### E RTPF, UA, UMICAO, THIERNO #### [facility] [address] [place] [address] Electronic Induction Hardener: Robert Motta MD Chloride [Moles/Vol] 100 mmol/L Normal 98-107 [facility] Comment on above: Performed By: #### E RTPF, UA, UMICAO, THIERNO #### [facility] [address] [place] [phone] Electronic Induction Hardener: Robert Motta MD CO2 [Moles/Vol] 25 mmol/L Normal 20-31 [facility] Comment on above: Performed By: #### E RTPF, UA, UMICAO, THIERNO #### [address] [address] Electronic Induction Hardener: Robert Motta MD Creatinine [Mass/Vol] 0.65 mg/dL Low 0.70-1.20 [facility] Comment on above: Performed By: #### E RTPF, UA, UMICAO, THIERNO #### [address] [address] Electronic Induction Hardener: Robert Motta MD GFR, Amer >60 Normal >60 [facility] Comment on above: Performed By: #### E RTPF, UA, UMICAO, THIERNO #### [address] [address] Electronic Induction Hardener: Robert Motta MD GFR,non Amer >60 Normal >60 [facility] Comment on above: Performed By: #### E RTPF, UA, UMICAO, THIERNO #### [address] [address] Electronic Induction Hardener: Robert Motta MD Glucose [Mass/Vol] 148 mg/dL High 70-99 [facility] Comment on above: Performed By: #### E RTPF, UA, UMICAO, THIERNO #### [facility] [address] [place] [address] Electronic Induction Hardener: Robert Motta MD Potassium [Moles/Vol] 3.6 mmol/L Low 3.7-5.3 [facility] Comment on above: Performed By: #### E RTPF, UA, UMICAO, THIERNO #### [address] [address] Electronic Induction Hardener: Robert Motta MD Sodium [Moles/Vol] 137 mmol/L Normal 135-144 [facility] Comment on above: Performed By: #### E RTPF, UA, UMICAO, THIERNO #### [address] [address] Electronic Induction Hardener: Robert Motta MD Urea nitrogen [Mass/Vol] 12 mg/dL Normal 6-20 [facility] Comment on above: Performed By: #### E RTPF, UA, UMICAO, THIERNO #### [address] [address] Electronic Induction Hardener: Robert Motta MD BUN/CRE Ratio NOT REPORTED Normal -20 [facility] Comment on above: Performed By: #### E RTPF, UA, UMICAO, THIERNO #### [facility] [employer] [address] [place] [address] Electronic Induction Hardener: Robert Motta MD Staging: NOT REPORTED Normal [facility] Comment on above: Performed By: #### E RTPF, UA, UMICAO, THIERNO #### [facility] [employer] [address] [place] [phone] Electronic Induction Hardener: Robert Motta MD CBC Auto Differentialon 05- Basophils (Bld) [#/Vol] 0.06 10*3/uL [place] Basophils/100 WBC (Bld) 1 % 0 - 2 % [place] Differential Type NOT REPORTED [place] Eosinophils (Bld) [#/Vol] 0.49 10*3/uL [place] Eosinophils/100 WBC (Bld) 4 % 1 - 4 % [place] Erythrocyte distribution width (RBC) [Ratio] 13.3 % 11.8 - 14.4 % [place] Hematocrit (Bld) [Volume fraction] 38.8 % Low 40.7 - 50.3 % [place] Hemoglobin (Bld) [Mass/Vol] 12.6 g/dL Low 13 - 17 g/dL [place] Immature granulocytes (Bld) [#/Vol] 0.03 10*3/uL [place] Immature granulocytes (Bld) [#/Vol] 0 % 0 [place] Interpretation and review of laboratory results Abnormal [place] Lymphocytes (Bld) [#/Vol] 2.34 10*3/uL [place] Lymphocytes/100 WBC (Bld) 21 % Low 24 - 43 % [place] MCH (RBC) [Entitic mass] 30.3 pg 25.2 - 33.5 pg [place] MCHC (RBC) [Mass/Vol] 32.5 g/dL 28.4 - 34.8 g/dL [place] MCV (RBC) [Entitic vol] 93.3 fL 82.6 - 102.9 fL [place] Monocytes (Bld) [#/Vol] 0.99 10*3/uL [place] Monocytes/100 WBC (Bld) 9 % 3 - 12 % [place] Platelet mean volume (Bld) [Entitic vol] 9.1 fL 8.1 - 13.5 fL [place], [place] Platelets (Bld) [#/Vol] 264 10*3/uL [place] Platelets (Bld) [#/Vol] NOT REPORTED [place] RBC (Bld) [#/Vol] 4.16 10*6/uL Low 4.21 - 5.7 7 m/uL [place] RBC morphology finding Nom (Bld) NOT REPORTED [place] Segmented neutrophils/100 WBC (Bld) 65 % 36 - 65 % [place] Segs Absolute 7.13 [place] WBC (Bld) [#/Vol] 11.0 10*3/uL [place] WBC (Bld) [#/Vol] 0.0 10*3/uL 0.0 per 10 0 WBC [place] WBC Morphology NOT REPORTED [place] CBC with Diffon 11-12-2019 Abs. Basophil 0.06 k/uL Normal 0.00-0.20 [facility] Comment on above: Performed By: #### E RTPF, UA, UMICAO, THIERNO #### [address] [address] Electronic Induction Hardener: Robert Motta MD Abs.Imm.Granulocyte 0.03 k/uL Normal 0.00-0.30 [facility] Comment on above: Performed By: #### E RTPF, UA, UMICAO, THIERNO #### [facility] [address] [place] [phone] Electronic Induction Hardener: Robert Motta MD Abs.Neutrophil (Seg) 7.13 k/uL Normal 1.50-8.10 [facility] Comment on above: Performed By: #### E RTPF, UA, UMICAO, THIERNO #### [facility] [employer] [address] [place] [phone] Electronic Induction Hardener: Robert Motta MD Basophils/100 WBC (Bld) 1 % Normal 0-2 [facility] Comment on above: Performed By: #### E RTPF, UA, UMICAO, THIERNO #### [facility] [employer] [address] [place] [address] [phone] Electronic Induction Hardener: Robert Motta MD Eosinophils (Bld) [#/Vol] 0.49 10*3/uL High 0.00-0.44 [facility] Comment on above: Performed By: #### E RTPF, UA, UMICAO, THIERNO #### [address] [address] Electronic Induction Hardener: Robert Motta MD Eosinophils/100 WBC (Bld) 4 % Normal 1-4 [facility] [facility] Comment on above: Performed By: #### E RTPF, UA, UMICAO, THIERNO #### [address] [address] Electronic Induction Hardener: Robert Motta MD Erythrocyte distribution width (RBC) [Ratio] 13.3 % Normal 11.8-14.4 [facility] Comment on above: Performed By: #### E RTPF, UA, UMICAO, THIERNO #### [address] [address] Electronic Induction Hardener: Robert Motta MD Hematocrit (Bld) [Volume fraction] 38.8 % Low 40.7-50.3 [facility] Comment on above: Performed By: #### E RTPF, UA, UMICAO, THIERNO #### [address] [address] Electronic Induction Hardener: Robert Motta MD Hemoglobin (Bld) [Mass/Vol] 12.6 g/dL Low 13.0-17.0 [facility] Comment on above: Performed By: #### E RTPF, UA, UMICAO, THIERNO #### [address] [address] Electronic Induction Hardener: Robert Motta MD Immature granulocytes (Bld) [#/Vol] 0 % Normal 0 [facility] Comment on above: Performed By: #### E RTPF, UA, UMICAO, THIERNO #### [facility] [employer] [address] [place] [address] Electronic Induction Hardener: Robert Motta MD Lymphocytes (Bld) [#/Vol] 2.34 10*3/uL Normal 1.10-3.70 [facility] Comment on above: Performed By: #### E RTPF, UA, UMICAO, THIERNO #### [address] [address] Electronic Induction Hardener: Robert Motta MD Lymphocytes/100 WBC (Bld) 21 % Low 24-43 [facility] Comment on above: Performed By: #### E RTPF, UA, UMICAO, THIERNO #### [address] [address] Electronic Induction Hardener: Robert Motta MD MCH (RBC) [Entitic mass] 30.3 pg Normal 25.2-33.5 [facility] Comment on above: Performed By: #### E RTPF, UA, UMICAO, THIERNO #### [address] [address] Electronic Induction Hardener: Robert Motta MD MCHC (RBC) [Mass/Vol] 32.5 g/dL Normal 28.4-34.8 [facility] Comment on above: Performed By: #### E RTPF, UA, UMICAO, THIERNO #### [address] [address] Electronic Induction Hardener: Robert Motta MD MCV (RBC) [Entitic vol] 93.3 fL Normal 82.6-102.9 [facility] Comment on above: Performed By: #### E RTPF, UA, UMICAO, THIERNO #### [address] [address] Electronic Induction Hardener: Robert Motta MD Monocytes (Bld) [#/Vol] 0.99 10*3/uL Normal 0.10-1.20 [facility] Comment on above: Performed By: #### E RTPF, UA, UMICAO, THIERNO #### [address] [place] [address] Electronic Induction Hardener: Robert Motta MD Monocytes/100 WBC (Bld) 9 % Normal 3-12 [facility] Comment on above: Performed By: #### E RTPF, UA, UMICAO, THIERNO #### [address] [address] Electronic Induction Hardener: Robert Motta MD Neutrophil (Seg) 65 % Normal 36-65 [facility] Comment on above: Performed By: #### E RTPF, UA, UMICAO, THIERNO #### [address] [address] Electronic Induction Hardener: Robert Motta MD NRBC Automated 0.0 per 100 WBC Normal 0.0 [facility] Comment on above: Performed By: #### E RTPF, UA, UMICAO, THIERNO #### [address] [address] Electronic Induction Hardener: Robert Motta MD Platelet mean volume (Bld) [Entitic vol] 9.1 fL Normal 8.1-13.5 [facility] Comment on above: Performed By: #### E RTPF, UA, UMICAO, THIERNO #### [address] [address] Electronic Induction Hardener: Robert Motta MD Platelets (Bld) [#/Vol] 264 10*3/uL Normal 138-453 [facility] Comment on above: Performed By: #### E RTPF, UA, UMICAO, THIERNO #### [address] [address] Electronic Induction Hardener: Robert Motta MD RBC (Bld) [#/Vol] 4.16 10*6/uL Low 4.21-5.77 [facility] Comment on above: Performed By: #### E RTPF, UA, UMICAO, THIERNO #### [address] [address] Electronic Induction Hardener: Robert Motta MD WBC (Bld) [#/Vol] 11.0 10*3/uL Normal 3.5-11.3 [facility] Comment on above: Performed By: #### E RTPF, UA, UMICAO, THIERNO #### [address] [address] Electronic Induction Hardener: Robert Motta MD Auto Diff Performed NOT REPORTED Normal [facility] Comment on above: Performed By: #### E RTPF, UA, UMICAO, THIERNO #### [address] [address] Electronic Induction Hardener: Robert Motta MD Platelets (Bld) [#/Vol] NOT REPORTED Normal [facility] Comment on above: Performed By: #### E RTPF, UA, UMICAO, THIERNO #### [address] [address] Electronic Induction Hardener: Robert Motta MD RBC morphology finding Nom (Bld) NOT REPORTED Normal [facility] Comment on above: Performed By: #### E RTPF, UA, UMICAO, THIERNO #### [address] [address] Electronic Induction Hardener: Robert Motta MD WBC Morphology NOT REPORTED Normal [facility] Comment on above: Performed By: #### E RTPF, UA, UMICAO, THIERNO #### [address] [address] Electronic Induction Hardener: Robert Motta MD Calcium, Ionicon 11-12-2019 Calcium [Mass/Vol] 1.10 mmol/L Low 1.13-1.33 [facility] Comment on above: Performed By: #### E RTPF, UA, UMICAO, THIERNO #### [facility] [address], [place] [id number] Electronic Induction Hardener: Robert Motta MD Calcium, Ionizedon 0 Calcium [Mass/Vol] 1.1 mmol/L Low 1.13 - 1. 33 mmol/L [place] Interpretation and review of laboratory results Abnormal [place] Magnesiumon 11-12-2019 Magnesium [Mass/Vol] 2.0 mg/dL Normal 1.6-2.6 [facility] Comment on above: Performed By: #### E RTPF, SHIRA, NICK CHENU #### [facility] [address] [place] [phone] Electronic Induction Hardener: Robert Motta MD Magnesium [Mass/Vol] 2.0 mg/dL 1.6 - 2 .6 mg/dL [place] Otheron 11-12-2019 Interpretation and review of laboratory results Abnormal [place] Interpretation and review of laboratory results Abnormal [place] POCT Glucoseon 11-12-2019 Glucose [Mass/Vol] 150 mg/dL High 74 - 100 mg/dL [place] Phosphoruson 11-12-2019 Phosphate [Mass/Vol] 3.4 mg/dL 2.5 - 4 .5 mg/dL [place] Phosphorus, Inorg.on 020 Phosphorus, Inorg. 3.4 mg/dL Normal 2.5-4.5 [facility] Comment on above: Performed By: #### E RTPF, SHIRA, THIERNO CHEN #### [facility] [address] [place] [address] Electronic Induction Hardener: Robert Motta MD TRIGLYCERIDESon 11-12-2019 Triglyceride [Mass/Vol] 194 mg/dL High <150 [place] Comment on above: Triglyceride Guidelines: <150 Desirable 150-199 Borderline 200-499 High >499 Very high Based on AHA Guidelines for fasting triglyceride, April 2012. Triglycerideson 11-12-2019 Triglyceride [Mass/Vol] 194 mg/dL High <150 M [facility] Comment on above: Result Comment: Triglyceride Guidelines: <150 Desirable 150-199 Borderline 200-499 High >499 Very high Based on AHA Guidelines for fasting triglyceride, April 2012. Performed By: #### E RTPF, SHIRA, THIERNO CHEN #### [facility] [place] [address] Electronic Induction Hardener: Robert Motta MD XR CHEST PORTABLEon 11-12-19 XR CHEST PORTABLE EXAMINATION: ONE XRAY VIEW OF THE CHEST 11/12/2019 6:15 am COMPARISON: Chest portable November 11, 2019 HISTORY: ORDERING SYSTEM PROVIDED HISTORY: intubated, decreased pf ratio TECHNOLOGIST PROVIDED HISTORY: intubated, decreased pf ratio FINDINGS: Endotracheal tube is noted in place with the distal tip located 4.7 cm superior to the jose. Nasogastric tube is noted with distal tip beyond the inferior fldzj-dc-yojf coursing beyond the gastroesophageal junction. The heart is normal in size and configuration. The mediastinal contours are within normal limits. Pulmonary vasculature is somewhat prominent and mildly indistinct. The lungs are well aerated. The pleural surfaces are normal and no evidence of a pleural effusion is seen. Bones and soft tissues are unremarkable. IMPRESSION: 1. Interval resolution right middle lobe airspace disease. 2. Pulmonary vascular congestion plus or minus mild pulmonary interstitial edema. Interpreted by: Ovi Calderon MD Signed by: Ovi Calderon MD 11/12/19 Final result Normal [facility] 1. Interval resolution right middle lobe airspace disease. 2. Pulmonary vascular congestion plus or minus mild pulmonary interstitial edema. [facility] [place] [place] Al, [facility] Incoming Radiant Results From [employer] - 11/12/2019 6:24 AM EDT EXAMINATION: ONE XRAY VIEW OF THE CHEST 11/12/2019 6:15 am COMPARISON: Chest portable November 11, 2019 HISTORY: ORDERING SYSTEM PROVIDED HISTORY: intubated, decreased pf ratio TECHNOLOGIST PROVIDED HISTORY: intubated, decreased pf ratio FINDINGS: Endotracheal tube is noted in place with the distal tip located 4.7 cm superior to the jose. Nasogastric tube is noted with distal tip beyond the inferior mjtfk-lh-odvm coursing beyond the gastroesophageal junction. The heart is normal in size and configuration. The mediastinal contours are within normal limits. Pulmonary vasculature is somewhat prominent and mildly indistinct. The lungs are well aerated. The pleural surfaces are normal and no evidence of a pleural effusion is seen. Bones and soft tissues are unremarkable. IMPRESSION: 1. Interval resolution right middle lobe airspace disease. 2. Pulmonary vascular congestion plus or minus mild pulmonary interstitial edema. [place] EXAMINATION: ONE XRAY VIEW OF THE CHEST 11/12/2019 6:15 am COMPARISON: Chest portable November 11, 2019 HISTORY: ORDERING SYSTEM PROVIDED HISTORY: intubated, decreased pf ratio TECHNOLOGIST PROVIDED HISTORY: intubated, decreased pf ratio FINDINGS: Endotracheal tube is noted in place with the distal tip located 4.7 cm superior to the jose. Nasogastric tube is noted with distal tip beyond the inferior rewul-zr-kgkn coursing beyond the gastroesophageal junction. The heart is normal in size and configuration. The mediastinal contours are within normal limits. Pulmonary vasculature is somewhat prominent and mildly indistinct. The lungs are well aerated. The pleural surfaces are normal and no evidence of a pleural effusion is seen. Bones and soft tissues are unremarkable. [place] Arterial Blood Gas, POCon Rafat Test NOT APPLICABLE [place], [place] aPTT Coag (Bld) [Time] NOT REPORTED [place] FIO2 50.0 [place] Mode PRVC [place] Negative Base Excess, Art NOT REPORTED [place] O2 Device/Flow/% Adult Ventilator Me [place], [place] Oxygen saturation in Blood 98 % 94 - 98 % [place] POC HCO3 29.3 mmol/L High 21 - 28 mmol/L [place] POC pCO2 50.2 High [place] POC pCO2 Temp NOT REPORTED mm Hg [place] POC pH 7.374 [place] POC pH Temp NOT REPORTED [place], [place] POC PO2 116.5 High [place] POC pO2 Temp NOT REPORTED mm Hg [place], [place] Positive Base Excess, Art 3 [place] Sample Site Arterial Line [place], [place] TCO2 (calc), Art 31 mmol/L High 22 - 29 mmol/L [facility] [place], [place] Basic Metab w/rfx MGon 11-10 (cont.) Normal [facility] Comment on above: Result Comment: Aver age GFR for 30-39 years old: 107 mL/min/1.73sq m Chronic Kidney Disease: <60 mL/min/1.73sq m Kidney failure: <15 mL/min/1.73sq m eGFR calculated using average adult body mass. Additional eGFR calculator available at: http://www.BookFresh/multiple_crcl_2012.htm Performed By: #### E RTPF, UA, UMICAO, THIERNO #### [address] [id number] Electronic Induction Hardener: Robert Motta MD Anion gap [Moles/Vol] 11 mmol/L Normal 9-17 [facility] Comment on above: Performed By: #### E RTPF, UA, UMICAO, THIERNO #### [address] [id number] Electronic Induction Hardener: Robert Motta MD Calcium [Mass/Vol] 8.4 mg/dL Low 8.6-10.4 [facility] Comment on above: Performed By: #### E RTPF, UA, UMICAO, THIERNO #### [address] [id number] Electronic Induction Hardener: Robert Motta MD Chloride [Moles/Vol] 105 mmol/L Normal 98-107 [facility] Comment on above: Performed By: #### E RTPF, UA, UMICAO, THIERNO #### [address] [phone] Electronic Induction Hardener: Robert Motta MD CO2 [Moles/Vol] 25 mmol/L Normal 20-31 [facility] Comment on above: Performed By: #### E RTPF, UA, UMICAO, THIERNO #### [facility] [address]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 images are provided for review. Dose modulation, iterative reconstruction, and/or weight based adjustment of the mA/kV was utilized to reduce the radiation dose to as low as reasonably achievable. COMPARISON: Chest radiograph today. HISTORY: ORDERING SYSTEM PROVIDED HISTORY: trauma TECHNOLOGIST PROVIDED HISTORY: trauma FINDINGS: Chest: Mediastinum: The heart and great vessels are normal in size. No pericardial effusion. No enlarged or suspicious-appearing lymph nodes are identified. Sequela of old granulomatous disease. Small amount of residual thymic tissue. The endotracheal tube terminates in appropriate position. The enteric tube terminates in the body of the stomach. Lungs/pleura: Dependent opacities are noted. Small amount debris in the bronchus intermedius. Few ground-glass opacities in the left upper lobe and ground-glass nodule measuring 5 mm in the lateral right middle lobe on image 58. Sequela of old granulomatous disease in the right lung. No effusion. Soft Tissues/Bones: No acute osseous abnormality identified. No subcutaneous gas or foreign body. Abdomen/Pelvis: Organs: No solid organ injury identified. Findings suggestive of hepatic steatosis. Appropriate excretion of contrast from the kidneys is demonstrated. GI/Bowel: There is no bowel dilatation or wall thickening identified. Pelvis: No acute findings. Smith catheter decompresses the bladder. Small amount of intraluminal contrast. Peritoneum/Retroperi toneum: No free air or free fluid. The aorta is normal in caliber. The visceral branches are patent. No lymphadenopathy. Bones/Soft Tissues: No acute osseous abnormality identified. No subcutaneous gas or foreign body. [place] 1. No acute traumatic injury identified. 2. Bilateral dependent and small amount debris in the bronchus intermedius. This may represent a combination of atelectasis and aspiration. 3. Inflammatory clustered ground-glass opacities in the left upper lobe, which may be related to inflammatory process related to aspiration. 4. Sequela of old granulomatous disease with noncalcified nodule in the right middle lobe, also likely a sequela of prior inflammatory process or infection. [place], [place] Al, [facility] Incoming Radiant Results From [employer] [facility] - 11/10/2019 8:45 AM EDT EXAMINATION: CT OF THE CHEST, ABDOMEN, AND PELVIS WITH CONTRAST 11/10/2019 7:28 am TECHNIQUE: CT of the chest, abdomen and pelvis was performed with the administration of intravenous contrast. Multiplanar reformatted images are provided for review. Dose modulation, iterative reconstruction, and/or weight based adjustment of the mA/kV was utilized to reduce the radiation dose to as low as reasonably achievable. COMPARISON: Chest radiograph today. HISTORY: ORDERING SYSTEM PROVIDED HISTORY: trauma TECHNOLOGIST PROVIDED HISTORY: trauma FINDINGS: Chest: Mediastinum: The heart and great vessels are normal in size. No pericardial effusion. No enlarged or suspicious-appearing lymph nodes are identified. Sequela of old granulomatous disease. Small amount of residual thymic tissue. The endotracheal tube terminates in appropriate position. The enteric tube terminates in the body of the stomach. Lungs/pleura: Dependent opacities are noted. Small amount debris in the bronchus intermedius. Few ground-glass opacities in the left upper lobe and ground-glass nodule measuring 5 mm in the lateral right middle lobe on image 58. Sequela of old granulomatous disease in the right lung. No effusion. Soft Tissues/Bones: No acute osseous abnormality identified. No subcutaneous gas or foreign body. Abdomen/Pelvis: Organs: No solid organ injury identified. Findings suggestive of hepatic steatosis. Appropriate excretion of contrast from the kidneys is demonstrated. GI/Bowel: There is no bowel dilatation or wall thickening identified. Pelvis: No acute findings. Smith catheter decompresses the bladder. Small amount of intraluminal contrast. Peritoneum/Retroperi toneum: No free air or free fluid. The aorta is normal in caliber. The visceral branches are patent. No lymphadenopathy. Bones/Soft Tissues: No acute osseous abnormality identified. No subcutaneous gas or foreign body. IMPRESSION: 1. No acute traumatic injury identified. 2. Bilateral dependent and small amount debris in the bronchus intermedius. This may represent a combination of atelectasis and aspiration. 3. Inflammatory clustered ground-glass opacities in the left upper lobe, which may be related to inflammatory process related to aspiration. 4. Sequela of old granulomatous disease with noncalcified nodule in the right middle lobe, also likely a sequela of prior inflammatory process or infection. [place] CT Cervical Spine WO Contras ton 11-10-2019 EXAMINATION: CT OF THE CERVICAL SPINE WITHOUT CONTRAST 11/10/2019 7:28 am TECHNIQUE: CT of the cervical spine was performed without the administration of intravenous contrast. Multiplanar reformatted images are provided for review. Dose modulation, iterative reconstruction, and/or weight based adjustment of the mA/kV was utilized to reduce the radiation dose to as low as reasonably achievable. COMPARISON: None HISTORY: ORDERING SYSTEM PROVIDED HISTORY: trauma TECHNOLOGIST PROVIDED HISTORY: trauma FINDINGS: Patient motion artifact limits evaluation at multiple levels, especially C3 through C5. Within this limitation: BONES/ALIGNMENT: There is no definite acute fracture or traumatic malalignment. DEGENERATIVE CHANGES: No significant degenerative changes identified. SOFT TISSUES: There is no prevertebral soft tissue swelling. [place] Patient motion artifact limited exam without definite evidence for acute fracture to the cervical spine. However, cervical spine cannot be cleared based on these images. [place], [place] Al, [facility] Incoming Radiant Results From [employer] [facility] - 11/10/2019 9:03 AM EDT EXAMINATION: CT OF THE CERVICAL SPINE WITHOUT CONTRAST 11/10/2019 7:28 am TECHNIQUE: CT of the cervical spine was performed without the administration of intravenous contrast. Multiplanar reformatted images are provided for review. Dose modulation, iterative reconstruction, and/or weight based adjustment of the mA/kV was utilized to reduce the radiation dose to as low as reasonably achievable. COMPARISON: None HISTORY: ORDERING SYSTEM PROVIDED HISTORY: trauma TECHNOLOGIST PROVIDED HISTORY: trauma FINDINGS: Patient motion artifact limits evaluation at multiple levels, especially C3 through C5. Within this limitation: BONES/ALIGNMENT: There is no definite acute fracture or traumatic malalignment. DEGENERATIVE CHANGES: No significant degenerative changes identified. SOFT TISSUES: There is no prevertebral soft tissue swelling. IMPRESSION: Patient motion artifact limited exam without definite evidence for acute fracture to the cervical spine. However, cervical spine cannot be cleared based on these images. [place] LUMBAR SPINE WO CONTRASTo n 11-10-2019 CT LUMBAR SPINE WO CONTRAST EXAMINATION: CT OF THE THORACIC SPINE WITHOUT CONTRAST; CT OF THE LUMBAR SPINE WITHOUT CONTRAST 11/10/2019 7:28 am: TECHNIQUE: CT of the thoracic spine was performed without the administration of intravenous contrast. Multiplanar reformatted images are provided for review. Dose modulation, iterative reconstruction, and/or weight based adjustment of the mA/kV was utilized to reduce the radiation dose to as low as reasonably achievable.; CT of the lumbar spine was performed without the administration of intravenous contrast. Multiplanar reformatted images are provided for review. Dose modulation, iterative reconstruction, and/or weight based adjustment of the mA/kV was utilized to reduce the radiation dose to as low as reasonably achievable. COMPARISON: None. HISTORY: ORDERING SYSTEM PROVIDED HISTORY: trauma TECHNOLOGIST PROVIDED HISTORY: trauma FINDINGS: BONES/ALIGNMENT: There is normal alignment of the spine. The vertebral body heights are maintained. No osseous destructive lesion is seen. DEGENERATIVE CHANGES: No gross spinal canal stenosis or bony neural foraminal narrowing of the thoracolumbar spine. Multilevel mild degenerative disc disease throughout the thoracolumbar spine. SOFT TISSUES: Please see dedicated CT of the chest, abdomen, and pelvis report for additional details. IMPRESSION: No evidence for fracture or malalignment of the thoracolumbar spine. Interpreted by: Bucky Villavicencio MD Signed by: Bucky Villavicencio MD 11/10/19 Final result Normal [facility] CT THORACIC SPINE WO CONTRAS Ton 11-10-2019 CT THORACIC SPINE WO CONTRAST EXAMINATION: CT OF THE THORACIC SPINE WITHOUT CONTRAST; CT OF THE LUMBAR SPINE WITHOUT CONTRAST 11/10/2019 7:28 am: TECHNIQUE: CT of the thoracic spine was performed without the administration of intravenous contrast. Multiplanar reformatted images are provided for review. Dose modulation, iterative reconstruction, and/or weight based adjustment of the mA/kV was utilized to reduce the radiation dose to as low as reasonably achievable.; CT of the lumbar spine was performed without the administration of intravenous contrast. Multiplanar reformatted images are provided for review. Dose modulation, iterative reconstruction, and/or weight based adjustment of the mA/kV was utilized to reduce the radiation dose to as low as reasonably achievable. COMPARISON: None. HISTORY: ORDERING SYSTEM PROVIDED HISTORY: trauma TECHNOLOGIST PROVIDED HISTORY: trauma FINDINGS: BONES/ALIGNMENT: There is normal alignment of the spine. The vertebral body heights are maintained. No osseous destructive lesion is seen. DEGENERATIVE CHANGES: No gross spinal canal stenosis or bony neural foraminal narrowing of the thoracolumbar spine. Multilevel mild degenerative disc disease throughout the thoracolumbar spine. SOFT TISSUES: Please see dedicated CT of the chest, abdomen, and pelvis report for additional details. IMPRESSION: No evidence for fracture or malalignment of the thoracolumbar spine. Interpreted by: Bucky Villavicencio MD Signed by: Bucky Villavicencio MD 11/10/19 Final result Normal [facility] Calcium, Ionicon 11-10-2019 Calcium [Mass/Vol] 1.14 mmol/L Normal 1.13-1.33 [facility] Comment on above: Performed By: #### E RTPF UA, UMICAO, THIERNO #### [facility] [address] [place] [id number] Electronic Induction Hardener: Robert Motta MD Carboxy Hgbon 11-10-2019 Carboxy Hgb 0.6 % Normal [address] [place] [address] Comment on above: Result Comment: Reference Range: Non-Smokers 0-2% Average Smoker 2-4% Heavy Smoker <10% Performed By: #### E RTPF UA, UMICAO, THIERNO #### [facility] [address] [place] [address] [id number] Electronic Induction Hardener: Robert Motta MD Carboxy Hgb 0.1 % Normal [address] Comment on above: Result Comment: Reference Range: Non-Smokers 0-2% Average Smoker 2-4% Heavy Smoker <10% Performed By: #### E RTPF UA, UMICAO, THIERNO #### [facility] [address] [place] [address] [phone] Electronic Induction Hardener: Robert Motta MD Carboxy Hgb 9.2 % High 0-5 [facility] Comment on above: Result Comment: Reference Range: Non-Smokers 0-2% Average Smoker 2-4% Heavy Smoker <10% Performed By: #### E RTPF, UA, UMICAO, THIERNO #### [facility] [employer] [address] [place] [address] [phone] Electronic Induction Hardener: Robert Motta MD Carboxyhemoglobinon 11-10-19 20 Carboxyhemoglobin 0.6 % 0 - 5 % [facility] [place], [place] Comment on above: Reference Range: Non-Smokers 0-2% Average Smoker 2-4% Heavy Smoker <10% Carboxyhemoglobin 0.1 % 0 - 5 % [facility] [employer] [facility] [place], [place] Comment on above: Reference Range: Non-Smokers 0-2% Average Smoker 2-4% Heavy Smoker <10% Carboxyhemoglobin 9.2 % High 0 - 5 % [facility] [place], [place] Comment on above: Reference Range: Non-Smokers 0-2% Average Smoker 2-4% Heavy Smoker <10% Interpretation and review of laboratory results Abnormal [place], [place] Drug Scr, Abuse, Uron 2019 Amphetamine(s),Ur Negative Normal NEG [facility] Comment on above: Result Comment: (Positive cutoff 1000 ng/mL) Performed By: #### E RTPF, UA, UMICAO, THIERNO #### [facility] [employer] [address] [place] [address] [phone] Electronic Induction Hardener: Robert Motta MD Barbiturate(s),Ur Negative Normal NEG [facility] Comment on above: Result Comment: (Positive cutoff 200 ng/mL) Performed By: #### E RTPF, UA, UMICAO, THIERNO #### [facility] [employer] [address] [place] [address] [phone] Electronic Induction Hardener: Robert Motta MD Base excess Calc (Bld) [Moles/Vol] Positive Abnormal NEG [facility] Comment on above: Result Comment: (Positive cutoff 300 ng/mL) Performed By: #### E RTPF, UA, UMICAO, THIERNO #### [facility] [employer] [facility] [place] [address] Electronic Induction Hardener: Robert Motta MD Benzodiazepine(s) Positive Abnormal NEG [facility] Comment on above: Result Comment: (Positive cutoff 200 ng/mL) Performed By: #### E RTPF, UA, UMICAO, THIERNO #### [facility] [employer] [address] [place] [address] [phone] Electronic Induction Hardener: Robert Motta MD Cannabinoid(s),Ur Positive Abnormal NEG [facility] Comment on above: Result Comment: (Positive cutoff 50 ng/mL) Performed By: #### E RTPF, UA, UMICAO, THIERNO #### [facility] [employer] [address] [place] [address] [phone] Electronic Induction Hardener: Robert Motta MD Interpretive Info Assay provides medical screening only. The absence of expected drug(s) and/or Normal [facility] Comment on above: Result Comment: meta bolite(s) may indicate diluted or adulterated urine, limitations of testing or timing of collection. Testing for legal purposes should be confirmed by another method. To request confirmation of test result, please call the lab within 7 days of sample submission. Performed By: #### E RTPF, UA, UMICAO, THIERNO #### [facility] [employer] [facility] [place] [address] Electronic Induction Hardener: Robert Motta MD Methadone Ql (U) Negative Normal NEG [facility] Comment on above: Result Comment: (Positive cutoff 300 ng/mL) Performed By: #### E RTPF, UA, UMICAO, THIERNO #### [facility] [employer] [address] [place] [address] [phone] Electronic Induction Hardener: Robert Motta MD Opiate(s), Ur Positive Abnormal NEG [facility] Comment on above: Result Comment: (Positive cutoff 300 ng/mL) Performed By: #### E RTPF, UA, UMICAO, THIERNO #### [facility] [address] [place] [address] [phone] Electronic Induction Hardener: Robert Motta MD Oxycodone, Urine Negative Normal NEG [facility] Comment on above: Result Comment: (Positive cutoff 100 ng/mL) Performed By: #### E RTPF, UA, UMICAO, THIERNO #### [facility] [address] [place] [address] [phone] Electronic Induction Hardener: Robert Motta MD Phencyclidine, Ur Negative Normal NEG [facility] Comment on above: Result Comment: (Positive cutoff 25 ng/mL) Performed By: #### E RTPF, UA, UMICAO, THIERNO #### [facility] [employer] [address] [place] [address] [phone] Electronic Induction Hardener: Robert Motta MD Buprenorphrine, Ur NOT REPORTED Normal NEG [facility] Comment on above: Performed By: #### E RTPF, UA, UMICAO, THIERNO #### [facility] [employer] [address] [place] [address] [phone] Electronic Induction Hardener: Robert Motta MD MDMA, Urine NOT REPORTED Normal NEG [facility] Comment on above: Performed By: #### E RTPF, UA, UMICAO, THIERNO #### [facility] [address] [place] [address] [phone] Electronic Induction Hardener: Robert Motta MD Methamphetamine, Ur NOT REPORTED Normal NEG [facility] Comment on above: Performed By: #### E RTPF, UA, UMICAO, THIERNO #### [facility] [address] [place] [address] [phone] Electronic Induction Hardener: Robert Motta MD Propoxyphene,Urine NOT REPORTED Normal NEG [facility] Comment on above: Performed By: #### E RTPF, UA, UMICAO, THIERNO #### [facility] [address] [place] [address] [phone] Electronic Induction Hardener: Robert Motta MD Tricyclic antidepressants Screen Ql (U) NOT REPORTED Normal NEG [facility] Comment on above: Performed By: #### E RTPF, UA, UMICAO, THIERNO #### [facility] [address] [place] [address] [phone] Electronic Induction Hardener: Robert Motta MD LACTIC ACID, WHOLE BLOODon 0 11-10-2019 Lactic Acid, Whole Blood 0.9 mmol/L 0.7 - 2.1 mmol/L [place], [place] Lactic Acid, POCon 0 POC Lactic Acid 1.48 mmol/L High 0.56 - 1.39 mmol/L [place], [place] Lactic Acid,Whole Blon 11-09 Lactic Acid,Whole Bl 0.9 mmol/L Normal 0.7-2.1 [facility] Comment on above: Performed By: #### E RTPF, UA, UMICAO, THIERNO #### [facility] [address] [place] [address] [phone] Electronic Induction Hardener: Robert Motta MD Metabolic Panelon 11-10-2019 GFR/1.73 sq M predicted among non-blacks MDRD (S/P/Bld) [Vol rate/Area] NOT REPORTED [facility], [place] Microscopic Urinalysison Amorphous, UA NOT REPORTED None [facility] [place] [place] Bacteria, UA NOT REPORTED None [facility], [place] Casts UA 0 TO 2 HYALINE Reference range defined for non-centrifuged specimen. [facility] Crystals, UA NOT REPORTED None /HPF [facility]- [place], [place] Epithelial Cells UA None [facility], [place] Mucus, UA NOT REPORTED None [facility], [place] Other Observations UA NOT REPORTED NOT REQ. M [facility], [place] RBC (U) [#/Vol] [address] [facility] [place], [place] Comment on above: Reference range defi ricky for non-centrifuged specimen. Renal Epithelial, UA NOT REPORTED 0 /HPF [place], [place] Trichomonas, UA NOT REPORTED None [facility] [place], [place] WBC, UA None [place], [place] Yeast, UA NOT REPORTED None [place], [place] - [place], [place] Otheron 11-10-2019 Interpretation and review of laboratory results Abnormal [place], [place] No evidence for fracture or malalignment of the thoracolumbar spine. [place], [place] Al, Mhpn Incoming Radiant Results From [employer] - 11/10/2019 8:45 AM EDT EXAMINATION: CT OF THE THORACIC SPINE WITHOUT CONTRAST; CT OF THE LUMBAR SPINE WITHOUT CONTRAST 11/10/2019 7:28 am: TECHNIQUE: CT of the thoracic spine was performed without the administration of intravenous contrast. Multiplanar reformatted images are provided for review. Dose modulation, iterative reconstruction, and/or weight based adjustment of the mA/kV was utilized to reduce the radiation dose to as low as reasonably achievable.; CT of the lumbar spine was performed without the administration of intravenous contrast. Multiplanar reformatted images are provided for review. Dose modulation, iterative reconstruction, and/or weight based adjustment of the mA/kV was utilized to reduce the radiation dose to as low as reasonably achievable. COMPARISON: None. HISTORY: ORDERING SYSTEM PROVIDED HISTORY: trauma TECHNOLOGIST PROVIDED HISTORY: trauma FINDINGS: BONES/ALIGNMENT: There is normal alignment of the spine. The vertebral body heights are maintained. No osseous destructive lesion is seen. DEGENERATIVE CHANGES: No gross spinal canal stenosis or bony neural foraminal narrowing of the thoracolumbar spine. Multilevel mild degenerative disc disease throughout the thoracolumbar spine. SOFT TISSUES: Please see dedicated CT of the chest, abdomen, and pelvis report for additional details. IMPRESSION: No evidence for fracture or malalignment of the thoracolumbar spine. [place], [place] EXAMINATION: CT OF THE THORACIC SPINE WITHOUT CONTRAST; CT OF THE LUMBAR SPINE WITHOUT CONTRAST 11/10/2019 7:28 am: TECHNIQUE: CT of the thoracic spine was performed without the administration of intravenous contrast. Multiplanar reformatted images are provided for review. Dose modulation, iterative reconstruction, and/or weight based adjustment of the mA/kV was utilized to reduce the radiation dose to as low as reasonably achievable.; CT of the lumbar spine was performed without the administration of intravenous contrast. Multiplanar reformatted images are provided for review. Dose modulation, iterative reconstruction, and/or weight based adjustment of the mA/kV was utilized to reduce the radiation dose to as low as reasonably achievable. COMPARISON: None. HISTORY: ORDERING SYSTEM PROVIDED HISTORY: trauma TECHNOLOGIST PROVIDED HISTORY: trauma FINDINGS: BONES/ALIGNMENT: There is normal alignment of the spine. The vertebral body heights are maintained. No osseous destructive lesion is seen. DEGENERATIVE CHANGES: No gross spinal canal stenosis or bony neural foraminal narrowing of the thoracolumbar spine. Multilevel mild degenerative disc disease throughout the thoracolumbar spine. SOFT TISSUES: Please see dedicated CT of the chest, abdomen, and pelvis report for additional details. [place], [place] [id number] 11-10-2019 SARS-CoV-2,Rapid Normal [facility] Comment on above: Performed By: #### E SHIRA BUSTOS UMICAO, DAU #### [address] [address] Electronic Induction Hardener: Robert Motta MD SARS-CoV-2 Not Detected Normal [facility] Comment on above: Result Comment: The specimen is NEGATIVE for SARS-CoV-2, the novel coronavirus associated with COVID-19. A negative result does not rule out COVID-19. This test has been authorized by the FDA under an Emergency Use Authorization (EUA) for use by authorized laboratories. Fact sheet for Healthcare Providers: https://www.fda.gov/media/204088/download Fact sheet for Patients: https://www.fda.gov/media/896056/download METHODOLOGY: RT-PCR Performed By: #### E SHIRA BUSTOS UMICAO, DAU #### [facility] [employer] [address] [place] [address] [phone] Electronic Induction Hardener: Robert Motta MD SARS-CoV-2 Normal [facility] Comment on above: Performed By: #### E RTPF, UA, UMICAO, THIERNO #### [facility] [address] [place] [address] Electronic Induction Hardener: Robert Motta MD SARS-CoV-2 Source .NASOPHARYNGEAL SWAB Normal [facility] Comment on above: Performed By: #### E RTPF, UA, UMICAO, THIERNO #### [facility] [employer] [address] [place], [place] [phone] Electronic Induction Hardener: Robert Motta MD TYPE AND SCREENon 11-10-2019 ABO/Rh Positive [place], [place] Arm Band Number BE [id number] [place], [place] Expiration Date 11/13/2019,235 [place], [place] Trauma Panelon 11-10-2019 Rafat Test NOT REPORTED [place], [place] Anion gap [Moles/Vol] 12 mmol/L 9 - 17 mmol/L [place] aPTT Coag (Bld) [Time] 25.5 s [place], [place] aPTT Coag (Bld) [Time] 37.0 s [place] Blood Bank Specimen BILL FOR SERVICES PERFORMED [place] Carboxyhemoglobin 14.1 % High 0 - 5 % [place], [place] Comment on above: Reference Range: Non-Smokers 0-2% Average Smoker 2-4% Heavy Smoker <10% Chloride [Moles/Vol] 102 mmol/L 98 - 10 7 mmol/L [place] CO2 [Moles/Vol] 26 mmol/L 20 - 31 mmol/L [place] Creatinine [Mass/Vol] 0.83 mg/dL 0.7 - 1.2 mg/dL [place] Erythrocyte distribution width (RBC) [Ratio] 12.8 % 11.8 - 14.4 % [place] Ethanol [Mass/Vol] mg/dL <10 mg/dL [place], [place] Ethanol percent <0.010 <0.010 % [place] FIO2 UNKNOWN [place] GFR NOT REPORTED >60 mL/min [place], [place] GFR Non- NOT REPORTED >60 mL/min [place], [place] Glucose [Mass/Vol] 153 mg/dL High 70 - 99 mg/dL [place], [place] hCG Qual CANCEL PT IS MALE NEGATIVE [facility] [place] HCO3, Venous 26.5 mmol/L 24 - 30 mmol/L [place] Hematocrit (Bld) [Volume fraction] 42.7 % 40.7 - 50.3 % [place] Hemoglobin (Bld) [Mass/Vol] 14.5 g/dL 13 - 17 g/dL [place] INR Coag (PPP) [Relative time] 0.9 {INR} [place], [place] Comment on above: Therapeutic Range: Moderate Anticoagulant Intensity: INR = 2.0-3.0 High Anticoagulant Intensity: INR = 2.5-3.5 Interpretation and review of laboratory results Abnormal [place] MCH (RBC) [Entitic mass] 30.7 pg 25.2 - 33.5 pg [place] MCHC (RBC) [Mass/Vol] 34.0 g/dL 28.4 - 34.8 g/dL [place] MCV (RBC) [Entitic vol] 90.5 fL 82.6 - 102.9 fL [place] Methemoglobin NOT REPORTED 0 - 1.5 % [place] Mode NOT REPORTED [place], [place] Negative Base Excess, Zhen 0.2 mmol/L 0 - 2 mmol/L [place] NOTIFICATION NOT REPORTED [place], [place] NOTIFICATION TIME NOT REPORTED [place], [place] O2 Device/Flow/% NOT REPORTED [place], [place] Oxygen saturation in Blood 82.4 % 60 - 85 % [place] Oxyhemoglobin NOT REPORTED 95 - 98 % [place] pCO2, Zhen 54.0 [place], [place] pCO2, Zhen, Temp Adj NOT REPORTED [place], [place] Peep/Cpap NOT REPORTED [place], [place] pH, Zhen 7.311 Low [place], [place] pH, Zhen, Temp Adj NOT REPORTED [place] Platelet mean volume (Bld) [Entitic vol] 9.1 fL 8.1 - 13.5 fL [place], [place] Platelets (Bld) [#/Vol] 321 10*3/uL [place] pO2, Zhen 43.5 [place] pO2, Zhen, Temp Adj NOT REPORTED [place], [place] Positive Base Excess, Zhen NOT REPORTED 0 - 2 mmol/L [place], [place] Potassium [Moles/Vol] 3.7 mmol/L 3.7 - 5.3 mmol/L [place] PSV NOT REPORTED [place], [place] PT Coag (PPP) [Time] 9.8 s [place] Pt. Position NOT REPORTED [place], [place] RBC (Bld) [#/Vol] 4.72 10*6/uL 4.21 - 5.7 7 m/uL [place], [place] Sample Site NOT REPORTED [place], [place] Set Rate NOT REPORTED [place], [place] Sodium [Moles/Vol] 140 mmol/L 135 - 144 mmol/L [place], [place] Text for Respiratory NOT REPORTED [place] Total Hb NOT REPORTED 12 - 16 g/dl [place], [place] Total Rate NOT REPORTED [place], [place] Urea nitrogen [Mass/Vol] 25 mg/dL High 6 - 20 mg/dL [place], [place] Comment on above: QA FLAGS AND/OR RANG ES MODIFIED BY DEMOGRAPHIC UPDATE ON 11/09 AT 0852 [place] NOT REPORTED [place], [place] WBC (Bld) [#/Vol] 0.0 10*3/uL 0.0 per 10 0 WBC [place] WBC (Bld) [#/Vol] 16.3 10*3/uL High [place], [place] Trauma Profileon 11-10-2019 aPTT Coag (Bld) [Time] 25.5 s Normal 20.5-30.5 [facility] Comment on above: Performed By: #### E RTPF, UA, THIERNO CHEN #### [facility] [employer] [address] [place] [address] [phone] Electronic Induction Hardener: Robert Motta MD INR Coag (PPP) [Relative time] 0.9 {INR} Normal [facility] Comment on above: Result Comment: Therapeutic Range: Moderate Anticoagulant Intensity: INR = 2.0-3.0 High Anticoagulant Intensity: INR = 2.5-3.5 Performed By: #### E RTPF, UA, UMICAO, THIERNO #### [address] [phone] Electronic Induction Hardener: Robert Motta MD PT Coag (PPP) [Time] 9.8 s Normal 9.0-12.0 [facility] Comment on above: Performed By: #### E RTPF, UA, UMICAO, THIERNO #### [address] [address] Electronic Induction Hardener: Robert Motta MD Anion gap [Moles/Vol] 12 mmol/L Normal 9-17 [facility] Comment on above: Performed By: #### E RTPF, UA, UMICAO, THIERNO #### [address] [address] Electronic Induction Hardener: Robert Motta MD Chloride [Moles/Vol] 102 mmol/L Normal 98-107 [facility] Comment on above: Performed By: #### E RTPF, UA, UMICAO, THIERNO #### [address] [address] Electronic Induction Hardener: Robert Motta MD CO2 [Moles/Vol] 26 mmol/L Normal 20-31 [facility] Comment on above: Performed By: #### E RTPF, UA, UMICAO, THIERNO #### [address] [address] Electronic Induction Hardener: Robert Motta MD Creatinine [Mass/Vol] 0.83 mg/dL Normal 0.70-1.20 [facility] Comment on above: Performed By: #### E RTPF, UA, UMICAO, THIERNO #### [facility] [address] [place] [address] [phone] Electronic Induction Hardener: Robert Motta MD Ethanol [Mass/Vol] mg/dL Normal <10 [facility] Comment on above: Performed By: #### E RTPF, UA, UMICAO, THIERNO #### [facility] [address] [place] [address] [phone] Electronic Induction Hardener: Robert Motta MD Ethanol percent <0.010 Normal <0.010 [facility] Comment on above: Performed By: #### E RTPF, UA, UMICAO, THIERNO #### [address] [address] Electronic Induction Hardener: Robert Motta MD Glucose [Mass/Vol] 153 mg/dL High 70-99 [facility] Comment on above: Performed By: #### E RTPF, UA, UMICAO, THIERNO #### [address] [address] Electronic Induction Hardener: Robert Motta MD Potassium [Moles/Vol] 3.7 mmol/L Normal 3.7-5.3 [facility] Comment on above: Performed By: #### E RTPF, UA, UMICAO, THIERNO #### [facility] [employer] [address] [place] [address] [phone] Electronic Induction Hardener: Robert Motta MD Sodium [Moles/Vol] 140 mmol/L Normal 135-144 [facility] Comment on above: Performed By: #### E RTPF, UA, UMICAO, THIERNO #### [facility] [address] [place] [address] [phone] Electronic Induction Hardener: Robert Motta MD Urea nitrogen [Mass/Vol] 25 mg/dL High 6-20 [facility] Comment on above: Result Comment: QA F LAGS AND/OR RANGES MODIFIED BY DEMOGRAPHIC UPDATE ON 11/09 AT 0852 Performed By: #### E RTPF, UA, UMICAO, THIERNO #### [facility] [address] [place] [address] [phone] Electronic Induction Hardener: Robert Motta MD Erythrocyte distribution width (RBC) [Ratio] 12.8 % Normal 11.8-14.4 [facility] Comment on above: Performed By: #### E RTPF, UA, UMICAO, THIERNO #### [facility] [address] [place] [address] [phone] Electronic Induction Hardener: Robert Motta MD Hematocrit (Bld) [Volume fraction] 42.7 % Normal 40.7-50.3 [facility] Comment on above: Performed By: #### E RTPF, UA, UMICAO, THIERNO #### [facility] [address] [place] [address] [phone] Electronic Induction Hardener: Robert Motta MD Hemoglobin (Bld) [Mass/Vol] 14.5 g/dL Normal 13.0-17.0 [facility] Comment on above: Performed By: #### E RTPF, UA, UMICAO, THIERNO #### [facility] [address] [place] [address] [phone] Electronic Induction Hardener: Robert Motta MD MCH (RBC) [Entitic mass] 30.7 pg Normal 25.2-33.5 [facility] Comment on above: Performed By: #### E RTPF, UA, UMICAO, THIERNO #### [facility] [address] [place] [address] [phone] Electronic Induction Hardener: Robert Motta MD MCHC (RBC) [Mass/Vol] 34.0 g/dL Normal 28.4-34.8 [facility] Comment on above: Performed By: #### E RTPF, UA, UMICAO, THIERNO #### [address] [address] Electronic Induction Hardener: Robert Motta MD MCV (RBC) [Entitic vol] 90.5 fL Normal 82.6-102.9 [facility] Comment on above: Performed By: #### E RTPF, UA, UMICAO, THIERNO #### [address] [address] Electronic Induction Hardener: Robert Motta MD NRBC Automated 0.0 per 100 WBC Normal 0.0 [facility] Comment on above: Performed By: #### E RTPF, UA, UMICAO, THIERNO #### [address] [address] Electronic Induction Hardener: Robert Motta MD Platelet mean volume (Bld) [Entitic vol] 9.1 fL Normal 8.1-13.5 [facility] Comment on above: Performed By: #### E RTPF, UA, UMICAO, THIERNO #### [address] [address] Electronic Induction Hardener: Robert Motta MD Platelets (Bld) [#/Vol] 321 10*3/uL Normal 138-453 [facility] Comment on above: Performed By: #### E RTPF, UA, UMICAO, THIERNO #### [address] [address] Electronic Induction Hardener: Robert Motta MD RBC (Bld) [#/Vol] 4.72 10*6/uL Normal 4.21-5.77 [facility] Comment on above: Performed By: #### E RTPF, UA, UMICAO, THIERNO #### [address] [address] Electronic Induction Hardener: Robert Motta MD WBC (Bld) [#/Vol] 16.3 10*3/uL High 3.5-11.3 [facility] Comment on above: Performed By: #### E RTPF, UA, UMICAO, THIERNO #### [address] [address] Electronic Induction Hardener: Robert Motta MD Body Temp. 37.0 [facility] Comment on above: Performed By: #### E RTPF, UA, UMICAO, THIERNO #### [address] [address] Electronic Induction Hardener: Robert Motta MD Carboxy Hgb 14.1 % High 0-5 [facility] Comment on above: Result Comment: Reference Range: Non-Smokers 0-2% Average Smoker 2-4% Heavy Smoker <10% Performed By: #### E RTPF, UA, UMICAO, THIERNO #### [address] [address] Electronic Induction Hardener: Robert Motta MD FIO2 UNKNOWN Normal [facility] Comment on above: Performed By: #### E RTPF, UA, UMICAO, THIERNO #### [address] [address] Electronic Induction Hardener: Robert Motta MD HCO3 (Bld) [Moles/Vol] 26.5 mmol/L Normal 24-30 [facility] Comment on above: Performed By: #### E RTPF, UA, UMICAO, THIERNO #### [address] [address] Electronic Induction Hardener: Robert Motta MD Negative Base Excess 0.2 mmol/L Normal 0.0-2.0 [facility] Comment on above: Performed By: #### E RTPF, UA, UMICAO, THIERNO #### [address] [address] Electronic Induction Hardener: Robert Motta MD Oxygen (Bld) [Partial pressure] 43.5 mm[Hg] Normal 30-50 [facility] Comment on above: Performed By: #### E RTPF, UA, UMICAO, THIERNO #### [facility] [employer] [address] [place] [address] Electronic Induction Hardener: Robert Motta MD Oxygen saturation in Blood 82.4 % Normal 60.0-85.0 [facility] Comment on above: Performed By: #### E RTPF, UA, UMICAO, THIERNO #### [facility] [address] [place] [phone] Electronic Induction Hardener: Robert Motta MD pCO2 54.0 Normal 39-55 [facility] Comment on above: Performed By: #### E RTPF, UA, UMICAO, THIERNO #### [facility] [employer] [address] [place] [phone] Electronic Induction Hardener: Robert Motta MD pH (Bld) 7.311 [pH] Low 7.320-7.420 [facility] Comment on above: Performed By: #### E RTPF, UA, UMICAO, THIERNO #### [facility] [employer] [address] [place] [phone] Electronic Induction Hardener: Robert Motta MD Blood Bank BILL FOR SERVICES PERFORMED Normal [facility] Comment on above: Performed By: #### E RTPF, UA, UMICAO, THIERNO #### [facility] [address] [place] [phone] Electronic Induction Hardener: Robert Motta MD (cont.) NOT REPORTED Normal [facility] Comment on above: Performed By: #### E RTPF, UA, UMICAO, THIERNO #### [facility] [employer] [address] [place] [phone] Electronic Induction Hardener: Robert Motta MD Rafat Test NOT REPORTED Normal [facility] Comment on above: Performed By: #### E RTPF, UA, UMICAO, THIERNO #### [facility] [address] [place] [address] [phone] Electronic Induction Hardener: Robert Motta MD GFR, Amer NOT REPORTED Normal >60 [facility] Comment on above: Performed By: #### E RTPF, UA, UMICAO, THIERNO #### [facility] [address] [place] [address] [phone] Electronic Induction Hardener: Robert Motta MD GFR,non Amer NOT REPORTED Normal >60 [facility] Comment on above: Performed By: #### E RTPF, UA, UMICAO, THIERNO #### [facility] [address] [place] [address] [phone] Electronic Induction Hardener: Robert Motta MD Methemoglobin NOT REPORTED Normal 0.0-1.5 [facility] Comment on above: Performed By: #### E RTPF, UA, UMICAO, THIERNO #### [facility] [address] [place] [address] [phone] Electronic Induction Hardener: Robert Motta MD Mode NOT REPORTED Normal [facility] Comment on above: Performed By: #### E RTPF, UA, UMICAO, THIERNO #### [facility] [address] [place] [address] [phone] Electronic Induction Hardener: Robert Motta MD Notification Time NOT REPORTED Normal [facility] Comment on above: Performed By: #### E RTPF, UA, UMICAO, THIERNO #### [facility] [address] [place] [address] [phone] Electronic Induction Hardener: Robert Motta MD Notification: NOT REPORTED Normal [facility] Comment on above: Performed By: #### E RTPF, UA, UMICAO, THIERNO #### [facility] [address] [place] [address] [phone] Electronic Induction Hardener: Robert Motta MD O2 Device/Flow/% NOT REPORTED Normal [facility] Comment on above: Performed By: #### E RTPF, UA, UMICAO, THIERNO #### [facility] [address] [place] [address] 10969 Electronic Induction Hardener: Robert Motta MD Oxyhemoglobin NOT REPORTED Normal 95.0-98.0 [facility] Comment on above: Performed By: #### E RTPF, UA, UMICAO, THIERNO #### [facility] [address] [place] [address] [phone] Electronic Induction Hardener: Robert Motta MD Pco2 Adj'd for Temp. NOT REPORTED Normal 39-55 Me [facility] Comment on above: Performed By: #### E RTPF, UA, UMICAO, THIERNO #### [facility] [address] [place] [address] [phone] Electronic Induction Hardener: Robert Motta MD PEEP/CPAP NOT REPORTED Normal [facility] Comment on above: Performed By: #### E RTPF, UA, UMICAO, THIERNO #### [facility] [address] [place] [address] [phone] Electronic Induction Hardener: Robert Motta MD pH Adjst'd for Temp. NOT REPORTED Normal 7.320-7.420 M [facility] Comment on above: Performed By: #### E RTPF, UA, UMICAO, THIERNO #### [facility] [address] [place] [address] [phone] Electronic Induction Hardener: Robert Motta MD pO2 Adj'd for Temp. NOT REPORTED Normal 30-50 [facility] Comment on above: Performed By: #### E RTPF, UA, UMICAO, THIERNO #### [facility] [address] [place] [address] [phone] Electronic Induction Hardener: Robert Motta MD Positive Base Excess NOT REPORTED Normal 0.0-2.0 [facility] Comment on above: Performed By: #### E RTPF, UA, UMICAO, THIERNO #### [facility] [address] [place] [address] [phone] Electronic Induction Hardener: Robert Motta MD PSV NOT REPORTED Normal [facility] Comment on above: Performed By: #### E RTPF, UA, UMICAO, THIERNO #### [facility] [address] [place] [address] [phone] Electronic Induction Hardener: Robert Motta MD Pt. Position NOT REPORTED Normal [facility] Comment on above: Performed By: #### E RTPF, UA, UMICAO, THIERNO #### [facility] [address] [place] [address] [phone] Electronic Induction Hardener: Robert Motta MD Set Rate NOT REPORTED Normal [facility] Comment on above: Performed By: #### E RTPF, UA, UMICAO, THIERNO #### [facility] [address] [place] [address] [phone] Electronic Induction Hardener: Robert Motta MD Site Drawn NOT REPORTED Normal [facility] Comment on above: Performed By: #### E RTPF, UA, UMICAO, THIERNO #### [facility] [address] [place] [address] 80135 Electronic Induction Hardener: Robert Motta MD Staging: NOT REPORTED Normal [facility] Comment on above: Performed By: #### E RTPF, UA, UMICAO, THIERNO #### [facility] [address] [place] [address] [phone] Electronic Induction Hardener: Robert Motta MD Text for Respiratory NOT REPORTED Normal [facility] Comment on above: Performed By: #### E RTPF, UA, UMICAO, THIERNO #### [facility] [address] [place] [address] 51448 Electronic Induction Hardener: Robert Motta MD Total Hb NOT REPORTED Normal 12.0-16.0 [facility] Comment on above: Performed By: #### E RTPF, UA, UMICAO, THIERNO #### [facility] [place] [address] Electronic Induction Hardener: Robert Motta MD Total Rate NOT REPORTED Normal [facility] Comment on above: Performed By: #### E RTPF, UA, UMICAO, THIERNO #### [facility] [address] [place] [address] [phone] Electronic Induction Hardener: Robert Motta MD VT NOT REPORTED Normal [facility] Comment on above: Performed By: #### E RTPF, UA, UMICAO, THIERNO #### [facility] [address] [place] [address] [phone] Electronic Induction Hardener: Robert Motta MD Type + Screenon 11-10-2019 Type + Screen Sample Expiration 11/13/2019,2359 Arm Band Number [id number] ABO/Rh(D) A POSITIVE Antibody Screen NEGATIVE Normal [facility] Comment on above: Performed By: #### E RTPF, UA, UMICAO, THIERNO #### [facility] [address] [place] [address] [phone] Electronic Induction Hardener: Robert Motta MD Urinalysison 11-10-2019 Bilirubin Urine Negative [facility] [place], [place] Color, UA YELLOW YELLOW [facility], [place] Glucose, Ur Negative NEGATIVE [facility] [place], [place] Interpretation and review of laboratory results Abnormal [facility], [place] Ketones Ql (U) Negative NEGATIVE [place], [place] Leukocyte esterase Test strip Ql (U) Negative NEGATIVE [facility], [place] Nitrite, Urine Negative NEGATIVE [place], [place] pH, UA 6.0 [facility], [place] Protein (U) [Mass/Vol] Negative NEGATIVE [facility] [place], [place] Specific Weed, UA 1.018 [place], [place] Turbidity UA CLEAR CLEAR [place], [place] Urinalysis Comments NOT REPORTED [place], [place] Urine Hgb SMALL Abnormal NEGATIVE [place], [place] Urobilinogen, Urine Normal Normal [place] Urinalysis, Routineon 2019 Acetoacetic Acid,Ur Negative Normal NEG [facility] Comment on above: Performed By: #### E RTPF, UA, UMICAO, THIERNO #### [facility] [address] [place] [address] [phone] Electronic Induction Hardener: Robert Motta MD Bilirubin, SemiQt,Ur Negative Normal NEG [facility] Comment on above: Performed By: #### E RTPF, UA, UMICAO, THIERNO #### [facility] [address] [place] [address] [phone] Electronic Induction Hardener: Robert Motta MD Color (U) YELLOW Normal YEL [facility] Comment on above: Performed By: #### E RTPF, UA, UMICAO, THIERNO #### [facility] [address] [place] [address] 84090 Electronic Induction Hardener: Robert Motta MD Glucose Ql (U) Negative Normal NEG [facility] Comment on above: Performed By: #### E RTPF, UA, UMICAO, THIERNO #### [facility] [address] [place] [address] [phone] Electronic Induction Hardener: Robert Motta MD Hemoglobin, Ur SMALL Abnormal NEG [facility] Comment on above: Performed By: #### E RTPF, UA, UMICAO, THIERNO #### [facility] [address] [place] [address] [phone] Electronic Induction Hardener: Robert Motta MD Leukocyte esterase Test strip Ql (U) Negative Normal NEG [facility] Comment on above: Performed By: #### E RTPF, UA, UMICAO, THIERNO #### [address] [address] Electronic Induction Hardener: Robert Motta MD Nitrite,Ur Negative Normal NEG [facility] Comment on above: Performed By: #### E RTPF, UA, UMICAO, THIERNO #### [address] [address] Electronic Induction Hardener: Robert Motta MD pH (U) 6.0 [pH] Normal 5.0-8.0 [facility] Comment on above: Performed By: #### E RTPF, UA, UMICAO, THIERNO #### [address] [address] Electronic Induction Hardener: Robert Motta MD Protein Ql (U) Negative Normal NEG [facility] Comment on above: Performed By: #### E RTPF, UA, UMICAO, THIERNO #### [address] [address] Electronic Induction Hardener: Robert Motta MD Specific gravity (U) [Rel density] 1.018 Normal 1.005-1.030 [facility] Comment on above: Performed By: #### E RTPF, UA, UMICAO, THIERNO #### [address] [address] Electronic Induction Hardener: Robert Motta MD Turbidity CLEAR Normal CLEAR [facility] Comment on above: Performed By: #### E RTPF, UA, UMICAO, THIERNO #### [address] [address] Electronic Induction Hardener: Robert Motta MD Urobilinogen,Ur Normal Normal NORM [facility] Comment on above: Performed By: #### E RTPF, UA, UMICAO, THIERNO #### [address] [address] Electronic Induction Hardener: Robert Motta MD Comment NOT REPORTED Normal [facility] Comment on above: Performed By: #### E RTPF, UA, UMICAO, THIERNO #### [address] [address] Electronic Induction Hardener: Robert Motta MD Urinalysis,Microon 0 ----- Normal [facility] Comment on above: Performed By: #### E RTPF, UA, UMICAO, THIERNO #### [address] [address] Electronic Induction Hardener: Robert Motta MD Casts LM.LPF (Urine sed) [#/Area] 0 TO 2 HYALINE Normal 0-8 [facility] Comment on above: Result Comment: Refe rence range defined for non-centrifuged specimen. Performed By: #### E RTPF, UA, UMICAO, THIERNO #### [facility] [address] [place] [address] [phone] Electronic Induction Hardener: Roebrt Motta MD Epithelial cells LM.HPF (Urine sed) [#/Area] None Normal 0-5 [facility] Comment on above: Performed By: #### E RTPF, UA, UMICAO, THIERNO #### [facility] [address] [place] [address] [phone] Electronic Induction Hardener: Robert Motta MD RBC (U) [#/Vol] 2 TO 5 Normal 0-4 [facility] Comment on above: Result Comment: Refe rence range defined for non-centrifuged specimen. Performed By: #### E RTPF, UA, UMICAO, THIERNO #### [facility] [address] [place] [address] [phone] Electronic Induction Hardener: Robert Motta MD WBC (U) [#/Vol] None Normal 0-5 [facility] Comment on above: Performed By: #### E RTPF, UA, UMICAO, THIERNO #### [facility] [address] [place] [address] Electronic Induction Hardener: Robert Motta MD Amorphous sediment LM Ql (Urine sed) NOT REPORTED Normal NONE [facility] Comment on above: Performed By: #### E RTPF, UA, UMICAO, THIERNO #### [facility] [address] [place] [address] Electronic Induction Hardener: Robert Motta MD Bacteria LM.HPF (Urine sed) [#/Area] NOT REPORTED Normal NONE [facility] Comment on above: Performed By: #### E RTPF, UA, UMICAO, THIERNO #### [facility] [address] [place] [address] [phone] Electronic Induction Hardener: Robert Motta MD Crystals LM Nom (Urine sed) NOT REPORTED Normal NONE [facility] Comment on above: Performed By: #### E RTPF, UA, UMICAO, THIERNO #### [facility] [address] [place] [address] 24553 Electronic Induction Hardener: Robert Motta MD Epithelial, Renal NOT REPORTED Normal 0 [facility] Comment on above: Performed By: #### E RTPF, UA, UMICAO, THIERNO #### [facility] [address] [place] [address] 74680 Electronic Induction Hardener: Robert Motta MD Mucus Strands NOT REPORTED Normal NONE [facility] Comment on above: Performed By: #### E RTPF, UA, UMICAO, THIERNO #### [facility] [address] [place] [address] Electronic Induction Hardener: Robert Motta MD Other Observations NOT REPORTED Normal NREQ [facility] Comment on above: Performed By: #### E RTPF, UA, UMICAO, THIERNO #### [facility] [address] [place] [address] 95653 Electronic Induction Hardener: Robert Motta MD Trichomonas NOT REPORTED Normal NONE [facility] Comment on above: Performed By: #### E RTPF, UA, UMICAO, THIERNO #### [facility] [address] [place] [address] Electronic Induction Hardener: Robert Motta MD Yeast LM Ql (Urine sed) NOT REPORTED Normal NONE [facility] Comment on above: Performed By: #### E RTPF, UA, UMICAO, THIERNO #### [facility] [address] [place], [place] [phone] Electronic Induction Hardener: Robert Motta MD Urine Drug Screenon 11-10-19 Amphetamine Screen, Ur Negative NEGATIVE [facility] [place] [place] Comment on above: (Positive cutoff 1000 ng/mL) Barbiturate Screen, Ur Negative NEGATIVE [facility] [place] Comment on above: (Positive cutoff 200 ng/mL) Benzodiazepine Screen, Urine Positive Abnormal NEGATIVE [facility] Comment on above: (Positive cutoff 200 ng/mL) Buprenorphine Urine NOT REPORTED NEGATIVE [facility] [place] Cannabinoid Scrn, Ur Positive Abnormal NEGATIVE [facility], [place] Comment on above: (Positive cutoff 50 ng/mL) Cocaine Metabolite, Urine Positive Abnormal NEGATIVE [facility] Comment on above: (Positive cutoff 300 ng/mL) Interpretation and review of laboratory results Abnormal [facility] MDMA, Urine NOT REPORTED NEGATIVE [facility], [place] Methadone Screen, Urine Negative NEGATIVE [facility], [place] Comment on above: (Positive cutoff 300 ng/mL) Methamphetamine, Urine NOT REPORTED NEGATIVE [facility] [place] Opiates, Urine Positive Abnormal NEGATIVE [facility] [place] Comment on above: (Positive cutoff 300 ng/mL) Oxycodone Screen, Ur Negative NEGATIVE [facility] [place] Comment on above: (Positive cutoff 100 ng/mL) Phencyclidine, Urine Negative NEGATIVE [facility] [place] Comment on above: (Positive cutoff 25 ng/mL) Propoxyphene, Urine NOT REPORTED NEGATIVE [facility] [place] Test Information Assay provides medical screening only. The absence of expected drug(s) and/or metabolite(s) may indicate diluted or adulterated urine, limitations of testing or timing of collection. [facility] Comment on above: Testing for legal pu rposes should be confirmed by another method. To request confirmation of test result, please call the lab within 7 days of sample submission. Tricyclic Antidepressants, Urine NOT REPORTED NEGATIVE [facility] CHEST PORTABLEon 11-10-19 20 XR CHEST PORTABLE EXAMINATION: ONE XRAY VIEW OF THE CHEST 11/10/2019 7:42 am COMPARISON: None. HISTORY: ORDERING SYSTEM PROVIDED HISTORY: intubated TECHNOLOGIST PROVIDED HISTORY: intubated FINDINGS: Endotracheal tube terminates 2.4 cm above the jose. Enteric tube courses below the left hemidiaphragm and terminates overlying the expected location of the stomach. Ill-defined ground-glass opacities in the upper lobes bilaterally. No pleural effusion or pneumothorax identified. No discrete osseous abnormality identified. IMPRESSION: Endotracheal and enteric tubes in appropriate position. Subtle ground-glass opacities in the upper lobes bilaterally. Interpreted by: Bucky Villavicencio MD Signed by: Bucky Villavicencio MD 11/10/19 Final result Normal [facility] Al, Mhpn Incoming Radiant Results From [facility]ipple.mee/Pacs - 11/10/2019 7:51 AM EDT EXAMINATION: ONE XRAY VIEW OF THE CHEST 11/10/2019 7:42 am COMPARISON: None. HISTORY: ORDERING SYSTEM PROVIDED HISTORY: intubated TECHNOLOGIST PROVIDED HISTORY: intubated FINDINGS: Endotracheal tube terminates 2.4 cm above the jose. Enteric tube courses below the left hemidiaphragm and terminates overlying the expected location of the stomach. Ill-defined ground-glass opacities in the upper lobes bilaterally. No pleural effusion or pneumothorax identified. No discrete osseous abnormality identified. IMPRESSION: Endotracheal and enteric tubes in appropriate position. Subtle ground-glass opacities in the upper lobes bilaterally. [facility] EXAMINATION: ONE XRAY VIEW OF THE CHEST 11/10/2019 7:42 am COMPARISON: None. HISTORY: ORDERING SYSTEM PROVIDED HISTORY: intubated TECHNOLOGIST PROVIDED HISTORY: intubated FINDINGS: Endotracheal tube terminates 2.4 cm above the jose. Enteric tube courses below the left hemidiaphragm and terminates overlying the expected location of the stomach. Ill-defined ground-glass opacities in the upper lobes bilaterally. No pleural effusion or pneumothorax identified. No discrete osseous abnormality identified. [place] Endotracheal and enteric tubes in appropriate position. Subtle ground-glass opacities in the upper lobes bilaterally. [place], [place] Vital Signs Date Time Vital Sign Value Performing Clinician Facility 11-13-2019 11:57-0400 Body Temperature 98.49 [degF] [place] 11-13-2019 11:57-0400 BP Diastolic 97 mm[Hg] [place] 11-13-2019 11:57-0400 BP Systolic 167 mm[Hg] [place] 11-13-2019 11:57-0400 Pulse (Heart Rate) 105 /min [place] 11-13-2019 11:57-0400 Pulse Oximetry 91 % [place] 11-13-2019 11:57-0400 Respiratory Rate 16 /min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
[2025-04-10 17:56] VITALS: BP 155/76; PULSE 76; TEMP 36.9; O2SAT 100; BMI 28.6
--- NOTE | 2025-04-10 18:15 | XR_ITS ---
The [address] [address] Patient Name: GISELE HODGES MRN: [id number] date: 1985 Sex: M Assigned Patient Location: ER Current Patient Location: ED.MAIN Accession/Order Number: [id number] Exam Date: 04/10/2025 18:30 Report Date: 04/10/2025 18:59 At the request of: CARMINE DURHAM Procedure: XR chest 1V PA CHEST: CLINICAL HISTORY: SOB COMPARISON: CT chest 10/07/2023 Unremarkable cardiomediastinal. Lungs clear. No effusion or pneumothorax. XR/XR chest 1V IMPRESSION: Negative for acute pleural-parenchymal disease. Impression dictated by: Ney Leonard M.D. 04/10/2025 6:59 PM Dictation Location: [place] [address] Electronically authenticated by: [id number] Y Date: 04/10/2025 18:59
--- NOTE | 2025-04-10 18:19 | ECG_ITS ---
The [facility] Test Date: 2025-04-10 Pat Name: GISELE HODGES Department: Room: - Gender: Male [employer]: : 1985 Requested By: [id number] Order Number: [id number] Reading MD: MACIEJ FLORES M.D. Measurements Intervals [place] Rate: 81 P: 45 [place]: 132 QRS: 72 QRSD: 90 T: 33 QT: 354 QTc: 391 Interpretive Statements 1100 Sinus rhythm 9110 normal ECG Compared to ECG 10/07/2023 18:22:07 Sinus tachycardia no longer present Electronically Signed On 04-10-2025 20:08:27 EDT by MACIEJ FLORES M.D.
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
--- NOTE | 2025-04-10 19:06 | CT_ITS ---
The [address] [address] Patient Name: GISELE HODGES MRN: [id number] date: 1985 Sex: M Assigned Patient Location: ER Current Patient Location: Accession/Order Number: [id number] Exam Date: 04/10/2025 19:30 Report Date: 04/10/2025 20:01 At the request of: LORRAINE HANKINS DO Procedure: CT angio chest CT ANGIOGRAM OF THE CHEST, PULMONARY EMBOLISM PROTOCOL: CLINICAL INFORMATION: Right lower lung pain TECHNIQUE: Following intravenous injection of contrast CT scans of the chest were obtained using pulmonary embolism protocol. Coronal and sagittal reconstructed images, as well as volume rendered CT pulmonary angiographic images were also submitted.The CT exam was performed using one or more of the following dose reduction techniques: Automated exposure control, adjustment of the MA and/or Kv according to patient size, or use of the iterative reconstruction technique. FINDINGS: Pulmonary Vasculature: Less than optimal timing contrast bolus. No central or lobar pulmonary emboli. Mediastinum : Heart is normal size. Coronary artery disease noted. No pericardial effusion. No bulky mediastinal or hilar adenopathy. Lungs: . No focal consolidation, pneumothorax or pleural effusion. Upper abdomen: No acute findings Soft tissue/bones: Soft tissues surrounding the chest wall demonstrate no acute findings. Osseous structures demonstrate degenerative change. CT/CT angio chest IMPRESSION: NEGATIVE FOR CENTRAL OR LOBAR PULMONARY EMBOLI. NEGATIVE ACUTE PLEURAL-PARENCHYMAL DISEASE. Impression dictated by: Ney Leonard M.D. 04/10/2025 8:01 PM Dictation Location: [place] [address] Electronically authenticated by: [id number] Y Date: 04/10/2025 20:01
[2025-04-10 19:13] VITALS: BP 118/64; PULSE 72; O2SAT 97
== END 2025-04-10 20:24 | disposition home or self-care (01) ==
PROVIDERS: Physician Assistant; Emergency Provider Emergency Medicine
DX: R07.89 Other chest pain (principal); Z87.891 Personal history of nicotine dependence; Z79.890 Hormone replacement therapy
CPT/HCPCS: 36415; 71045; 71275; 85378; 93005; 99285; Q9967